=== PATIENT | female | born 1935 | race Caucasian/White ===

== ENCOUNTER 2020-04-01 08:06 | Outpatient (REF) | payer MEDICARE, SELFPAY ==
[2020-04-01 11:07] LABS: MANUAL DIFF FLAG NO
[2020-04-01 11:18] LABS: Basophils Absolute Auto 0.1 X10*3/uL (0.0-0.2); Basophils Percent Auto 0.8 % (0-2); Eosinophils Absolute Auto 1.3 X10*3/uL (0.0-0.4); Eosinophils Percent Auto 13.6 % (0-4); Hemoglobin 14.5 g/dl (12.0-16.0); Imm Gran Abs Auto 0.03 X10*3/uL (0.00-0.03); Imm Gran Pct Auto 0.3 % (0.0-0.4); Lymphocytes Absolute Auto 3.1 X10*3/uL (1.2-4.9); Lymphocytes Percent Auto 32.6 % (20-40); Mean Corpuscular HGB Conc 31.5 g/dl (31.0-35.0); Mean Corpuscular Hemoglobin 29.2 pg (27.0-33.0); Mean Corpuscular Volume 92.7 fL (80-98); Mean Platelet Volume 10.9 fL (9.4-12.3); Monocytes Absolute Auto 0.9 X10*3/uL (0.1-1.2); Monocytes Percent Auto 9.1 % (2-11); Neutrophils Absolute Auto 4.2 X10*3/uL (2.0-8.3); Neutrophils Percent Auto 43.6 % (45-73); Platelet Count 256 X10*3/uL (160-400); Red Blood Count 4.96 X10*6/uL (4.20-5.50); Red Cell Distribution Width 14.4 % (11.0-16.0); White Blood Count 9.6 X10*3/uL (4.8-10.8)
[2020-04-01 11:58] LABS: Alanine Aminotransferase 11 U/L (0-31); Alkaline Phosphatase 83 U/L (39-117); Anion Gap 15 (12-20); Aspartate Amino Transferase 29 U/L (5-31); Bilirubin Total 0.7 mg/dL (0.0-1.0); Blood Urea Nitrogen 14 mg/dL (9-16); Calcium 9.2 mg/dL (8.4-10.2); Carbon Dioxide 25 mmol/L (22-29); Chloride 107 mmol/L (96-108); Cholesterol 173 mg/dL; Estimated Glomerular Filt Rate > 60; Glucose Fasting 98 mg/dL (60-99); HDL Cholesterol 73 mg/dL; LDL Cholesterol Calculated 84 mg/dl; Potassium 4.3 mmol/l (3.3-5.1); Sodium 143 mmol/L (135-145); Total Protein 6.8 g/dL (6.5-8.0); Triglycerides 80 mg/dL
[2020-04-01 11:59] LABS: Thyroid Stimulating Hormone 0.48 mIU/mL (0.32-4.0)
== END 2020-04-01 08:07 | disposition home or self-care (01) ==
LOC: HO.HMGCLDS 08:06
PROVIDERS: PCP Internal Medicine; Visit Provider Internal Medicine
DX: E78.00 Pure hypercholesterolemia, unspecified (principal); I10 Essential (primary) hypertension; E03.9 Hypothyroidism, unspecified; J45.30 Mild persistent asthma, uncomplicated; L40.9 Psoriasis, unspecified
CPT/HCPCS: 36415; 80053; 80061; 84443; 85025

== ENCOUNTER 2021-03-25 09:25 | Outpatient (REF) | payer MEDICARE, SELFPAY ==
[2021-03-25 11:39] LABS: MANUAL DIFF FLAG NO
[2021-03-25 11:49] LABS: Basophils Absolute Auto 0.1 X10*3/uL (0.0-0.2); Basophils Percent Auto 0.9 % (0-2); Eosinophils Absolute Auto 0.7 X10*3/uL (0.0-0.4); Eosinophils Percent Auto 8.5 % (0-4); Hematocrit 46.3 % (37-47); Hemoglobin 14.9 g/dl (12.0-16.0); Imm Gran Abs Auto 0.03 X10*3/uL (0.00-0.03); Imm Gran Pct Auto 0.4 % (0.0-0.4); Lymphocytes Absolute Auto 2.3 X10*3/uL (1.2-4.9); Lymphocytes Percent Auto 28.5 % (20-40); Mean Corpuscular HGB Conc 32.2 g/dl (31.0-35.0); Mean Corpuscular Hemoglobin 28.4 pg (27.0-33.0); Mean Corpuscular Volume 88.4 fL (80-98); Mean Platelet Volume 10.7 fL (9.4-12.3); Monocytes Absolute Auto 0.6 X10*3/uL (0.1-1.2); Neutrophils Absolute Auto 4.3 X10*3/uL (2.0-8.3); Neutrophils Percent Auto 53.7 % (45-73); Platelet Count 257 X10*3/uL (160-400); Red Blood Count 5.24 X10*6/uL (4.20-5.50); Red Cell Distribution Width 14.7 % (11.0-16.0)
[2021-03-25 12:17] LABS: Alanine Aminotransferase 27 U/L (0-31); Alkaline Phosphatase 105 U/L (39-117); Anion Gap 14 (12-20); Aspartate Amino Transferase 53 U/L (5-31); Bilirubin Total 0.6 mg/dL (0.0-1.0); Blood Urea Nitrogen 14 mg/dL (9-16); Calcium 9.9 mg/dL (8.4-10.2); Carbon Dioxide 23 mmol/L (22-29); Chloride 109 mmol/L (96-108); Cholesterol 206 mg/dL; Estimated Glomerular Filt Rate > 60; Glucose Fasting 115 mg/dL (60-99); HDL Cholesterol 71 mg/dL; LDL Cholesterol Calculated 114 mg/dl; Potassium 4.2 mmol/L (3.3-5.1); Sodium 142 mmol/L (135-145); Triglycerides 109 mg/dL
[2021-03-25 12:18] LABS: Thyroid Stimulating Hormone 0.74 uIU/mL (0.32-4.0)
== END 2021-03-25 09:26 | disposition home or self-care (01) ==
LOC: HO.HMGCLDS 09:25
PROVIDERS: PCP Internal Medicine; Visit Provider Internal Medicine
DX: I10 Essential (primary) hypertension (principal); E78.00 Pure hypercholesterolemia, unspecified; E03.8 Other specified hypothyroidism; J45.30 Mild persistent asthma, uncomplicated
CPT/HCPCS: 36415; 80053; 80061; 84443; 85025

== ENCOUNTER 2021-09-22 09:06 | Outpatient (REF) | payer MEDICARE, SELFPAY ==
[2021-09-22 09:15] LABS: MANUAL DIFF FLAG NO
--- NOTE | 2021-09-22 09:57 | ECG_ITS ---
Test Reason : ESSEN. HTN Blood Pressure : / mmHG Vent. Rate : 072 BPM Atrial Rate : 072 BPM P-R Int : 164 ms QRS Dur : 126 ms QT Int : 422 ms P-R-T Axes : -12 071 015 degrees QTc Int : 462 ms Normal sinus rhythm Right bundle branch block Abnormal ECG When compared with ECG of 25-AUG-2016 10:26, Right bundle branch block is now Present Referred By: Lukas Gupta Electronically Signed By:SULY CRAVEN MD
[2021-09-22 10:11] LABS: Basophils Absolute Auto 0.1 X10*3/uL (0.0-0.2); Basophils Percent Auto 0.8 % (0-2); Eosinophils Absolute Auto 0.7 X10*3/uL (0.0-0.4); Eosinophils Percent Auto 7.5 % (0-4); Imm Gran Abs Auto 0.03 X10*3/uL (0.00-0.03); Imm Gran Pct Auto 0.3 % (0.0-0.4); Lymphocytes Absolute Auto 2.3 X10*3/uL (1.2-4.9); Lymphocytes Percent Auto 25.4 % (20-40); Mean Corpuscular HGB Conc 31.9 g/dl (31.0-35.0); Mean Corpuscular Hemoglobin 29.1 pg (27.0-33.0); Mean Corpuscular Volume 91.3 fL (80.0-98.0); Mean Platelet Volume 10.8 fL (9.4-12.3); Monocytes Absolute Auto 0.8 X10*3/uL (0.1-1.2); Monocytes Percent Auto 8.5 % (2-11); Neutrophils Absolute Auto 5.1 x10*3/uL (2.0-8.3); Neutrophils Percent Auto 57.5 % (45-73); Platelet Count 242 X10*3/uL (160-400); Red Blood Count 5.15 X10*6/uL (4.20-5.50); Red Cell Distribution Width 14.2 % (11.0-16.0); White Blood Count 8.9 X10*3/uL (4.8-10.8)
[2021-09-22 10:46] LABS: Alanine Aminotransferase 11 U/L (0-31); Alkaline Phosphatase 84 U/L (39-117); Anion Gap 16 (12-20); Aspartate Amino Transferase 32 U/L (5-31); Bilirubin Total 0.7 mg/dL (0.0-1.0); Blood Urea Nitrogen 16 mg/dL (9-16); Calcium 10.1 mg/dL (8.4-10.2); Carbon Dioxide 22 mmol/L (22-29); Chloride 107 mmol/L (96-108); Estimated Glomerular Filt Rate > 60; Glucose Random 117 mg/dL (60-115); Potassium 4.7 mmol/L (3.3-5.1); Sodium 140 mmol/L (135-145); Total Protein 7.2 g/dL (6.5-8.0)
[2021-09-22 11:00] LABS: Thyroid Stimulating Hormone 1.32 uIU/mL (0.32-4.0)
== END 2021-09-22 09:07 | disposition home or self-care (01) ==
LOC: HO.LAB 09:06
PROVIDERS: PCP Internal Medicine; Visit Provider Internal Medicine
DX: I10 Essential (primary) hypertension (principal); E03.9 Hypothyroidism, unspecified; E78.00 Pure hypercholesterolemia, unspecified
CPT/HCPCS: 36415; 80053; 84443; 85025; 93005

== ENCOUNTER 2022-04-23 10:56 | Outpatient (REF) | payer MEDICARE, SELFPAY ==
--- NOTE | ~2022-04-23 | MM_ITS ---
EXAMINATION: MM SCREENING DIGITAL BREAST TOMOSYNTHESIS, BILATERAL CLINICAL INFORMATION: Screening. Asymptomatic. COMPARISON: Mammography: February 20, 2020 and studies dating back to July 08, 2015 TECHNIQUE: Digital breast tomosynthesis is performed in both the craniocaudal and mediolateral oblique views along with computer-aided detection (CAD). Synthesized 2D images are generated from the tomosynthesis. FINDINGS: The breasts are almost entirely fatty (ACR BI-RADS breast composition Category a). There are no significant masses, abnormal calcifications, or other abnormalities. MM/MM tomosynthesis screening BI IMPRESSION: No significant changes ASSESSMENT: BI-RADS 1: Negative RECOMMENDATION: Routine annual mammography screening. This patient's information was entered into a reminder system with a target due date for their next mammogram.
== END 2022-04-23 10:57 | disposition home or self-care (01) ==
LOC: HO.MAMMO 10:56
PROVIDERS: PCP Internal Medicine; Visit Provider Internal Medicine
DX: Z12.31 Encounter for screening mammogram for malignant neoplasm of breast (principal)
CPT/HCPCS: 77063; 77067

== ENCOUNTER 2022-07-02 10:33 | Outpatient (REF) | payer MEDICARE, SELFPAY ==
--- NOTE | ~2022-07-02 | XR_ITS ---
EXAMINATION: XR SINUSES CLINICAL INFORMATION: Sinusitis COMPARISON: None TECHNIQUE: 4 FINDINGS: Visualized paranasal sinuses appear clear. No air-fluid levels. No displaced fracture appreciated. Nasal septum is intact without deviation. XR/XR sinus min 3V IMPRESSION: Visualized paranasal sinuses appear clear. If clinical concern for sinusitis persists, CT sinuses be more sensitive for evaluation.
== END 2022-07-02 10:34 | disposition home or self-care (01) ==
LOC: HO.XRAY 10:33
PROVIDERS: PCP Internal Medicine; Visit Provider Otolaryngology
DX: J32.9 Chronic sinusitis, unspecified (principal)
CPT/HCPCS: 70220

== ENCOUNTER 2022-09-15 11:53 | Outpatient (REF) | payer MEDICARE, SELFPAY ==
[2022-09-15 13:51] LABS: MANUAL DIFF FLAG NO
[2022-09-15 14:05] LABS: Basophils Absolute Auto 0.1 X10*3/uL (0.0-0.2); Basophils Percent Auto 0.8 % (0-2); Eosinophils Absolute Auto 0.9 X10*3/uL (0.0-0.4); Eosinophils Percent Auto 9.4 % (0-4); Hematocrit 46.6 % (37.0-47.0); Hemoglobin 15.1 g/dl (12.0-16.0); Imm Gran Abs Auto 0.04 X10*3/uL (0.00-0.03); Imm Gran Pct Auto 0.4 % (0.0-0.4); Lymphocytes Percent Auto 20.4 % (20-40); Mean Corpuscular HGB Conc 32.4 g/dl (31.0-35.0); Mean Corpuscular Hemoglobin 29.6 pg (27.0-33.0); Mean Corpuscular Volume 91.4 fL (80.0-98.0); Mean Platelet Volume 11.3 fL (9.4-12.3); Monocytes Absolute Auto 0.8 X10*3/uL (0.1-1.2); Monocytes Percent Auto 8.4 % (2-11); Neutrophils Percent Auto 60.6 % (45-73); Platelet Count 252 X10*3/uL (160-400); Red Cell Distribution Width 13.7 % (11.0-16.0)
[2022-09-15 14:58] LABS: Thyroid Stimulating Hormone 2.01 uIU/mL (0.32-4.0)
== END 2022-09-15 11:54 | disposition home or self-care (01) ==
LOC: HO.HMGCLDS 11:53
PROVIDERS: PCP Internal Medicine; Visit Provider Internal Medicine
DX: I10 Essential (primary) hypertension (principal); E78.00 Pure hypercholesterolemia, unspecified; E03.9 Hypothyroidism, unspecified; J45.30 Mild persistent asthma, uncomplicated; M16.12 Unilateral primary osteoarthritis, left hip
CPT/HCPCS: 36415; 84443; 85025

== ENCOUNTER 2022-09-16 09:14 | Outpatient (REF) | payer MEDICARE, SELFPAY ==
[2022-09-16 12:18] LABS: Alanine Aminotransferase 11 U/L (0-31); Alkaline Phosphatase 90 U/L (39-117); Anion Gap 15 (12-20); Aspartate Amino Transferase 30 U/L (5-31); Bilirubin Total 0.7 mg/dL (0.0-1.0); Blood Urea Nitrogen 12 mg/dL (9-16); Calcium 9.6 mg/dL (8.4-10.2); Carbon Dioxide 23 mmol/L (22-29); Chloride 107 mmol/L (96-108); Cholesterol 193 mg/dL; Estimated Glomerular Filt Rate > 60; Glucose Fasting 118 mg/dL (60-99); HDL Cholesterol 73 mg/dL; LDL Cholesterol Calculated 101 mg/dl; Potassium 4.2 mmol/L (3.3-5.1); Sodium 141 mmol/L (135-145); Total Protein 6.6 g/dL (6.5-8.0); Triglycerides 98 mg/dL
== END 2022-09-16 09:15 | disposition home or self-care (01) ==
LOC: HO.HMGCLDS 09:14
PROVIDERS: PCP Internal Medicine; Visit Provider Internal Medicine
DX: I10 Essential (primary) hypertension (principal); E78.00 Pure hypercholesterolemia, unspecified; E03.9 Hypothyroidism, unspecified; J45.30 Mild persistent asthma, uncomplicated; M16.12 Unilateral primary osteoarthritis, left hip
CPT/HCPCS: 36415; 80053; 80061

== ENCOUNTER 2024-01-28 08:37 | Outpatient (REF) | payer MEDICARE, SELFPAY ==
[2024-01-28 10:07] LABS: MANUAL DIFF FLAG NO
[2024-01-28 10:19] LABS: Basophils Absolute Auto 0.1 X10*3/uL (0.0-0.2); Eosinophils Absolute Auto 1.2 X10*3/uL (0.0-0.4); Eosinophils Percent Auto 12.8 % (0-4); Hematocrit 45.5 % (37.0-47.0); Hemoglobin 15.3 g/dl (12.0-16.0); Imm Gran Abs Auto 0.04 X10*3/uL (0.00-0.03); Imm Gran Pct Auto 0.4 % (0.0-0.4); Lymphocytes Absolute Auto 2.6 X10*3/uL (1.2-4.9); Lymphocytes Percent Auto 29.1 % (20-40); Mean Corpuscular HGB Conc 33.6 g/dl (31.0-35.0); Mean Corpuscular Hemoglobin 29.7 pg (27.0-33.0); Mean Corpuscular Volume 88.2 fL (80.0-98.0); Mean Platelet Volume 10.8 fL (9.4-12.3); Monocytes Percent Auto 10.7 % (2-11); Neutrophils Absolute Auto 4.1 x10*3/uL (2.0-8.3); Platelet Count 236 X10*3/uL (160-400); Red Blood Count 5.16 X10*6/uL (4.20-5.50)
[2024-01-28 10:51] LABS: Alanine Aminotransferase 10 U/L (0-31); Albumin Level 3.8 g/dL (3.5-5.0); Alkaline Phosphatase 80 U/L (39-117); Anion Gap 13 (12-20); Aspartate Amino Transferase 31 U/L (5-31); Bilirubin Total 0.5 mg/dL (0.0-1.0); Blood Urea Nitrogen 20 mg/dL (9-16); Calcium 9.8 mg/dL (8.4-10.2); Carbon Dioxide 26 mmol/L (22-29); Chloride 104 mmol/L (96-108); Cholesterol 173 mg/dL (<200); Estimated Glomerular Filt Rate > 60; Glucose Fasting 132 mg/dL (60-99); HDL Cholesterol 65 mg/dL (>40); LDL Cholesterol Calculated 90 mg/dL (<100); Potassium 3.3 mmol/L (3.3-5.1); Sodium 140 mmol/L (135-145); Total Protein 7.3 g/dL (6.5-8.0); Triglycerides 91 mg/dL (<150)
[2024-01-28 10:57] LABS: Thyroid Stimulating Hormone 0.36 uIU/mL (0.32-4.0)
== END 2024-01-28 08:38 | disposition home or self-care (01) ==
LOC: HO.HMGCLDS 08:37
PROVIDERS: PCP Internal Medicine; Visit Provider Internal Medicine
DX: I10 Essential (primary) hypertension (principal); E78.00 Pure hypercholesterolemia, unspecified; E03.9 Hypothyroidism, unspecified; J45.30 Mild persistent asthma, uncomplicated; M16.12 Unilateral primary osteoarthritis, left hip
CPT/HCPCS: 36415; 80053; 80061; 84443; 85025

== ENCOUNTER 2024-08-23 10:52 | Outpatient (AMB) | payer MEDICARE, SELFPAY ==
--- NOTE | 2024-08-23 10:55 | A.OFFPC_ITS ---
Vital Signs 08/23/24 11:02 Height 5 ft 2.25 in Weight 149 lb BMI 27.0 BP 150/82 H Blood Pressure Location Rt brachial Pulse 77 Pulse Source Pulse Oximeter Temp 97.0 F Pulse Oximetry (%) 95 Intake Visit Reasons: follow up Intake Note: problem with right hip and knee last week was bad where she couldn't get out of bed. Allergies No Known Allergies [No Known Allergies*] Allergy (Verified 08/23/24 12:15) Medication List - Last Reconciled 08/23/24 by Edwina Zuleta PA-C albuterol sulfate 90 mcg/actuation 1 inh inhalation Q4-6H PRN aspirin 81 mg PO DAILY atorvastatin 20 mg PO DAILY calcium carbonate-vit D3-min 600 mg-10 mcg (400 unit) 1 tab PO BID fluticasone propion-salmeterol 250-50 mcg/dose 1 inh inhalation BID hydrochlorothiazide 25 mg PO DAILY ibuprofen 800 mg PO Q6H PRN levothyroxine 75 mcg PO DAILY metoprolol tartrate 25 mg PO DAILY [facility] Medical History (Updated 08/23/24 @ 12:19 by Edwina Zuleta PA-C) History of mammogram (~04/23/22) Primary osteoarthritis of right knee [place] Cataract Glaucoma Psoriasis 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 BMI result Body Mass Index 27.0 BMI Assessment/Plan discussion: High BMI High, discussed plan: lifestyle, weight reduction, dietary, physical activity and alcohol moderation Coding Level of Care Code Est Pt Level 4 (23848) Complex EM visit Add On G2211 Diagnoses Hypertension I10 Mild hypercholesterolemia E78.00 Hypothyroidism E03.9 Osteoarthritis M19.90 Squamous cell carcinoma of face C44.320 Obstructive airway disease J44.9 Osteoporosis M81.0 Psoriasis L40.9 Primary osteoarthritis of right knee M17.11 Cough R05.9 Assessment & Plan Assessment & Plan (1) Hypertension: Code(s): I10 - Essential (primary) hypertension Category: Medical Plan: The patient should monitor her blood pressure at home for two weeks to determine the need for adjustments in therapy. She is currently on aspirin 81 mg, atorvastatin 20 mg daily, hydrochlorothiazide 25 mg, metoprolol 25 mg daily. Condition is chronic and stable will continue to monitor. (2) Mild hypercholesterolemia: Code(s): E78.00 - Pure hypercholesterolemia, unspecified Category: Medical Plan: TC Goal <200. LDL Goal <100. HDL Goal >40. Triglyceride goal <150. Patient had labs on 01/28/2024 triglycerides were 91, total cholesterol 173, LDL 90 and HDL 65. At goal. Patient to continue atorvastatin 20 mg daily. Condition is chronic and stable continue to monitor. (3) Hypothyroidism: Code(s): E03.9 - Hypothyroidism, unspecified Category: Medical Plan: Patient with normal TSH level. Patient to continue levothyroxine 75 mcg daily Wednesday through Wednesday and on Sundays 2 tablets of the 75 mcg. Condition is chronic and stable continue to monitor. (4) Osteoarthritis: Code(s): M19.90 - Unspecified osteoarthritis, unspecified site Category: Medical Plan: Patient reports her symptoms have improved. Condition is chronic and stable patient can continue taking ibuprofen 800 mg every 6 hours as needed (5) Squamous cell carcinoma of face: Code(s): C44.320 - Squamous cell carcinoma of skin of unspecified parts of face Category: Medical Plan: Patient to continue being followed by Dermatology. Condition is chronic and stable continue to monitor. (6) Obstructive airway disease: Code(s): J44.9 - Chronic obstructive pulmonary disease, unspecified Category: Medical Plan: Patient to continue to inhalers. If she develops any worsening shortness of breath, chest pain or any other symptoms she can call us. Condition is chronic and stable continue to monitor. (7) Osteoporosis: Code(s): M81.0 - Age-related osteoporosis without current pathological fracture Category: Medical Plan: Patient reports her symptoms have improved. Condition is chronic and stable patient can continue taking ibuprofen 800 mg every 6 hours as needed (8) Psoriasis: Code(s): L40.9 - Psoriasis, unspecified Category: Medical Plan: Patient being followed by Dermatology. Condition is chronic and stable continue to monitor. (9) Primary osteoarthritis of right knee: Code(s): M17.11 - Unilateral primary osteoarthritis, right knee Category: Medical Plan: Patient reports her symptoms have improved. Condition is chronic and stable patient can continue taking ibuprofen 800 mg every 6 hours as needed (10) Cough: Code(s): R05.9 - Cough, unspecified Category: Medical Plan: Will assess basic labs, chest x-ray and send the patient with a Z-Clarence for possible bronchitis. Condition is stable continue to monitor. Plan Plan Patient was informed and verbally consented to the use of an ambient scribe for clinic note documentation during this visit. 1. Chronic Obstructive Pulmonary Disease Copd Continue current inhaler regimen. Observe for any exacerbation signs and maintai n regular pulmonary assessments during follow-up visits. 2. Osteoarthritis Manage pain with NSAIDs. Monitor symptoms, particularly when there's physical activity. Use mobility aids as necessary for improved functional capacity. 3. Essential Hypertension The patient should monitor her blood pressure at home for two weeks to determine the need for adjustments in therapy. Potential colorations with transient coughing episodes and blood pressure changes should be monitored. Discussion Notes I discussed with the patient the management plan for her elevated blood pressure, emphasizing the importance of home monitoring to determine if the elevated office readings are consistent at home. We reviewed the use of a home blood pressure monitor and the importance of recording her readings. For her musculoskeletal pain, we agreed on continuing the current NSAID regimen and use of a walker for mobility support, recognizing that her acute episode has somewhat stabilized. Additionally, I explained the testing planned, including a potential CDC, CMP, and chest x-ray if symptoms worsen, noting the importance of fasting prior to testing. The importance of maintaining regular follow-up was stressed to monitor her COPD and squamous cell carcinoma history adequately. Orders: Orders Hemoglobin A1c Today Z00.00 - Encounter for general adult medical examination without abnormal findings Magnesium Today Z00.00 - Encounter for general adult medical examination without abnormal findings Vitamin B12 and Folate Today Z00.00 - Encounter for general adult medical examination without abnormal findings Vitamin B1 Today Z00.00 - Encounter for general adult medical examination without abnormal findings XR chest 2V Today R05.9 - Cough, unspecified C Reactive Protein Today Z00.00 - Encounter for general adult medical examination without abnormal findings Complete Blood Count Auto Diff Today Z00.00 - Encounter for general adult medical examination without abnormal findings Comprehensive Sublette. Panel Fast Today Z00.00 - Encounter for general adult medical examination without abnormal findings Creatine Kinase Total Today Z00.00 - Encounter for general adult medical examination without abnormal findings Lipid Panel Today Z00.00 - Encounter for general adult medical examination without abnormal findings Liver Panel Today Z00.00 - Encounter for general adult medical examination without abnormal findings TSH reflex Free T4 Today Z00.00 - Encounter for general adult medical examination without abnormal findings Vitamin D 25-OH Total Today Z00.00 - Encounter for general adult medical examination without abnormal findings Zinc Today Z00.00 - Encounter for general adult medical examination without abnormal findings Erythrocyte Sedimentation Rate Today Z00.00 - Encounter for general adult medical examination without abnormal findings Parathyroid Hormone Intact Today Z00.00 - Encounter for general adult medical examination without abnormal findings Phosphorus Today Z00.00 - Encounter for general adult medical examination without abnormal findings B Type Natriuretic Peptide Today R60.0 - Localized edema Medications: New azithromycin For 250 mg dose pack: take 500 mg today (day 1), then 250 mg for 4 days (days 2-5) PO 6 tabs 0RF Patient Instructions: Patient Instructions - Continue taking prescribed medications and [id number] Advil as needed for pain. - Monitor and record your blood pressure at home once daily or every other day. - Contact the office if you experience consistently high readings or have questions regarding the use of the blood pressure monitor. - Use a walker or other mobility aids as needed. - Schedule a follow-up in two weeks for blood pressure re-evaluation and ensure fasting prior to any scheduled laboratory tests. - Seek immediate medical care if you experience severe symptoms such as difficulty breathing, chest pain, or a fall. Scribe Plan - Not visible on output: History of Present Illness The patient is an 88-year-old female presenting with a follow-up for her chronic medical conditions. She has a past medical history of hypertension. She is currently on aspirin 81 mg daily, hydrochlorothiazide 25 mg daily and metoprolol 25 mg daily. Although during today's visit, her blood pressure was recorded as 150/82 mmHg, higher than her usual home reading of 117 mmHg. She reports no consistent elevated blood pressure at home and has been advised to monitor her blood pressure for a subsequent evaluation. The patient describes an acute episode of intense pain in her old hip and newly replaced knee one week ago, leading to significant mobility challenges. Pain onset was abrupt during the night, and she required assistance to get out of bed for a few days. Her condition has since improved with pain management using Advil. She utilizes a walker for support indoors and reports no recent falls. Patient reports over the weekend she also had a cough and some chest congestion and she spitting up small amounts of sputum production although that has im proved significantly. She denies any other symptoms complaints or concerns at this time. Social History - Lives alone but family resides nearby, providing support as needed. - Daughter lives down the street, and other relatives live close, providing potential emergency support. - Engages in her own daily activities such as cooking and cleaning. - Grandson and great-grandsons live on the upper floor of her residence. - Reports mobility with aid of a walker. - Pets: A cat with frequent interactions, including some mischief leading to minor physical harm. Review of Systems - Musculoskeletal: Reports acute pain in the hip and knee. - Respiratory: Reports recent coughing and sneezing, ongoing with some expectoration. - Cardiovascular: Denies recent leg swelling worsening with laying down. - ENT: Reports a need for replacing a lost hearing aid. - General: Denies recent falls but notes mobility challenges due to hip and knee pain. Physical Exam Appearance: Alert. Oriented X3. No acute distress. Head: Normal external exam. Normocephalic. Atraumatic. Eyes: Pupils are equal, round, and reactive to light. Extraocular movements intact. Conjunctiva and sclera normal. Eyelids normal. Ears: External auditory canal normal. Tympanic membranes normal. Throat: Pharynx normal. Uvula midline. Moist mucous membranes. Neck: Normal inspection. Neck supple. Full range of motion. No adenopathy. T hyroid Normal. No meningeal signs. No neck mass noted. Cardiovascular: Normal heart rate and rhythm. Heart sound normal. No murmurs noted. Pulses normal throughout. Respiratory: No respiratory distress. Painless inspiration. Breath sounds normal. No wheezes/rales/rhonchi noted. Chest nontender. No accessory muscle usage noted or decreased air movement noted. Abdomen: Soft and nontender. Bowel sounds normal in all 4 quadrants. No distention noted. No organomegaly noted. No visible injury noted. Back: No costovertebral angle tenderness. Full range of motion noted. Skin: Skin warm and dry. Normal skin color. Normal skin turgor. No rashes/lesions/lacerations noted. Extremities: No lower extremity edema. Extremities exhibit normal range of motion. Extremities nontender. Neuro: Oriented X 3. No motor deficit. No sensory deficit. Reflexes normal.
[2024-08-23 11:02] VITALS: BP 150/82; PULSE 77; TEMP 36.1; O2SAT 95; BMI 27.0
--- OUTSIDE RECORDS SUMMARY | 2024-08-23 13:03 | XMS_ITS ---
Author Organization [facility] Address [address] [place] [id number] Care Team Providers Care Label Sewer Name Role Phone Alonso LEE, Lukas Primary Care Provider Unavail Gisell Parker [phone] Encounters Encounter Location Date Provider Diagnosis [address] [phone] 07/27/2024 Gisell Sanderson Plan Of Treatment Next Appt Details Provider Name:Gisell Sanderson , 09/25/2024 08:30:00 AM, [address] [place] [address], [phone], Progress Notes * Vidhi MELENDREZ MDOB:1935 (88 yo F)Acc No.[id number]:07/27/2024 Progress Note Patient:?PARVIN Vidhi Rider Provider:?Gisell Sanderson DPM :1935???Age:88 Y???Sex:Female D ate:07/27/2024 Address:[address] [place] [id number] Pcp:Lukas Gupta MD Subjective: * Chief Complaints: * ??? * Medical History:? Objective: * Vitals:? Assessment: Plan: * Treatment: * Images: * The named appointment provid er may or may not be the originator of this progress note, and it is not deemed complete until electronically signed by the appointment provider. Sign off status: Pending * Provider:Arcadio Sanderson DPM Date:?2024 Generated for Gutierrez sweet/Mary/Alexanderitting on:?08/23/2024 01:03 PM EDT
--- OUTSIDE RECORDS SUMMARY | 2024-08-23 13:03 | XMS_ITS ---
[facility] Organization [facility] Address [address] [place] [address] Care Team Providers Care Supervisor Testing Name Role Phone Lukas Gupta MD Primary Care Provider Unavail able Gisell Sanderson Unavailable [phone] Allergies No Known Allergies REASON FOR VISIT Painful nail(s) aggrevated by shoes and causing difficulty standing/walking., Foot pain, Ingrown Nail Medications Medication SIG (Take, Route, Frequency, Duration) Notes Start Date End Date Status Tylenol Arthritis Pain Not-Taking Acetaminophen Extra Strength 500 MG 2 tablets as needed Orally every 6 hrs for 5 days 01/05/2018 Not-Taking Gabapentin 300 MG 1 capsule Orally AT BEDTIME for 14 days 10/09/2021 Not-Taking Cephalexin 500 MG 1 capsule Orally twi ce a day for 10 days 10/27/2021 Not-Taking Otezla 30 MG 1 tablet Orally Twic e a day Not-Taking Calcium Active Acetaminophen Extra Strength 500 MG 2 tablet as needed Orally every 6 hrs for 14 days 10/09/2021 Active Calcipotriene 0.005 % Externally Active Cephalexin 500 MG 1 capsule Orally twi ce a day for 10 days 08/30/2023 Not-Taking Ibuprofen 800 MG 1 tablet with food o r milk as needed Orally every 6 hrs for 10 days PRN 10/09/2021 Active Clobetasol & Clobetasol Emul Active Levothyroxine Sodium 75 MCG 1 capsule Orally Once a day Active Simvastatin 20 MG 1 tablet in the evening Orally Once a day Active ProAir HFA Active Metoprolol Succinate 50 MG Orally twice daily Active Serevent Diskus 50 MCG/DOSE 1 puff Inhalation Twice a day Not-Taking Desoximetasone Not-T aking Vanicream Not-Taking Quinapril HCl Not-Ta conor Flovent Diskus Not-T aking Gabapentin 300 MG 1 capsule Orally Onc e a day for 10 days 01/05/2018 Not-Taking Keflex 500 MG 1 capsule Orally guillermo ry 12 hrs for 10 days 01/14/2018 Not-Taking Ibuprofen 800 MG 1 tablet with food o r milk as needed Orally Three times a day for 10 days 01/05/2018 Not-Taking Pneumatic Compression Boot 30mm Hg as directed over swollen feet and legs as directed for . 01/24/2018 Not-Taking Latanoprost 0.005 % Ophthalmic for 17 Not-Taking Social History Tobacco Use: Social History Observation Description Date Details (start date - stop date) Never Smoker NA - NA Tobacco Use/Smoking Question Answer Notes Are you a: nonsmoker Additional Findings: Tobacco Non-User Current no n-smoker Tobacco use other than smoking: Question Answer Notes Are you an other tobacco user? No Vital Signs Height 5 ft 2 in in 04/20/2024 Weight 146 lbs 04/20/2024 BMI 26.7 kg/m2 04/20/2024 Procedures Procedure Date Ordered Date Performed Result Body Sit e 22194-ZWRDMNX NAIL, 6 OR MORE 04/20/2024 N/A 81979-Uhlwgwoh Plate 04/20/2024 N/A Encounters Encounter Location Date Provider Diagnosis [facility] [address] [address] 04/20/2024 Gisell Black Pain in right foot M79.671 ; Metatarsalgia, right foot M77.41 ; Tinea unguium B35.1 ; Pain in right toe(s) M79.674 ; Pain in left toe(s) M79.675 ; Pain in right ankle and joints of right foot M25.571 ; Bursitis of intermetatarsal bursa of right foot M77.51 ; 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 and Ingrown nail L60.0 Assessments Encounter Date Diagnosis (ICD Code) Assessment Notes Treatment Notes Treatment Clinical Notes Section Notes 04/20/2024 Pain in right foot (ICD-10 - M79.671) 04/20/2024 Metatarsalgia, right foot (ICD-10 - M77.41) 04/20/2024 Tinea unguium (ICD-10 - B35.1) 04/20/2024 Pain in right toe(s) (ICD-10 - M79.674) 04/20/2024 Pain in left toe(s) (ICD-10 - M79.675) 04/20/2024 Pain in right ankle and joints of right foot (ICD-10 - M25.571) 04/20/2024 Bursitis of intermetatarsal bursa of right foot (ICD-10 - M77.51) 04/20/2024 Fat pad atrophy of foot (ICD-10 - L90.9) 04/20/2024 Ingrown nail (ICD-10 - L60.0) Plan Of Treatment Pending Test Test Name Order Date [id number] NAIL, 6 OR MORE 04/20/2024 19812-Uttjbxkf Plate 04/20/2024 Next Appt Details Follow Up: prn, Reason: Provider Name:Gisell Sanderson , 09/25/2024 08:30:00 AM, [address] [place] [address], [phone], Procedure Notes * Category Sub-Category Detail Notes Nail Avulsion Procedure A fine sterile e levator was placed between the eponychium, nail fold, and nail plate to separate the structures. A sterile nail splitter, and/or sterile 316 blade, was then used to longitudinally section the nail along its entire length through the eponychium to the area under the nail fold. The offending portion of nail was from the nail bed with a rolling action and then removed with a hemostat. No underlying bone was identified. There was minimal bleeding as hemostasis was achieved through the temporary use of either a digital tourniquet or the aforementioned local with epinephrine. A bacitracin sterile dressing was applied. Local wound aftercare instructions were discussed and dispensed. The patient was informed of both conservative and future surgical procedures to prevent recurrence. Tylenol or Motrin was recommended for pain or discomfort (98487) Anesthesia , was accomplished T OPICALLY with Lidocaine Hydrochloride Jelly 2 percent Location , Lateral nail borde r, T5 Debride Nail 6-10 Nail debridement Performance o f this nail treatment by a nonprofessional would put this patients foot and overall health at risk. Therefore, debridement to affected nail(s), as described in exam, was performed extensively to reduce/remove overall nail length, girth, thickness, subungual debris, and necrotic tissue, by manual and/or electrical means through the use of a nail nipper and/or dremel-type external grinder, to a more viable healthy nail plate or bed tissue 6-10. Silver nitrate used for any petechial bleeding as necessary. Definitive antifungal treatment options have been reviewed and discussed with the patient. The patient chooses, no pharmaceutical tx - [address] Progress Notes * Vidhi MELENDREZ MDOB:1935 (88 yo F)Acc No.[id number]:04/20/2024 Progress Note Patient:?Vidhi MELENDREZ M Provider:?Gisell Sanderson DPM :1935???Age:88 Y???Sex:Female D ate:04/20/2024 Address:[address] [place], [place] [id number] Pcp:Lukas Gupta MD Subjective: * Chief Complaints: * ??? Painful nail(s) aggrevat ed by shoes and causing difficulty standing/walking.Foot painIngrown Nail * HPI: ???Painful Nails:?Pt States Last PCP Visit:?Date:?01/27/2024 ???Foot Pain:?Location:?Bottom, Forefoot, RIGHT.?Duration:?several months.?Course:?, improved, at 85%.?Treatments:?rest/alter normal daily activity, change in shoes, innersoles.? * ROS:?General/Constitutional:?Nausea?denies.?Vomiting?denies.?Hunger Thirst?denies.?Loss appetite?denies.?Chills?denies.?Fatigue?denies.?Fever?denies.?Night Sweats?denies.?Unexplained weight loss?denies.?Unexplained weight gain?denies.?HEENTM:?Dentures?denies.?Dizziness?denies.?Glasses/contacts?admits.?Retinopathy?de nies.?Blurred/double vision?denies.?TMJ?denies.?Discharge/drainage?denies.?Implants?denies.?Sore throat?denies.?Dental implants?denies.?Hard of hearing ?denies.?Difficulty chewing/swallowing/speaking?denies.?Nose bleeds?denies.?Sore mouth?denies.?Respiratory:?On Oxygen?denies.?Pneumonia/pleurisy?denies.?Bronchitis?denies.?Emphysema?denies.?C oughing?denies.?Cough blood?denies.?Shortness of breath?denies.?Wheezing?denies.?Cardiovascular:?Pacemaker?denies.?MVP?denies.?WPW?denies.?CHF?denies.?Heart attack?denies.?Septal defect?denies.?Rapid beat?denies.?Chest pain ?denies.?Atrial Fib.?denies.?Murmur/Palpitations?denies.?Gastrointestinal:?Hemorrhoids?denies.?Stomach/Abdominal pain?denies.?Dark blood stool?denies.?Irritable bowel ?denies.?Constipation?denies.?Diarrhea?denies.?Hematology:?Swelling?denies.?Clots?denies.?Varicose Veins?denies.?Bruising?denies.?Bleeding problem?denies.?Genitourinary:?Blood urine?denies.?Frequent/Painfu/urination/bladder control?denies.?Kidney stones?denies.?Infection (UTI)?denies.?Nephropathy?denies.?sex trans dis (STD)?denies.?Prostate?denies.?Musculoskeletal:?Hammertoes?, admits.?Bunions?, admits.?Back Pain?denies.?Muscle Cramps/ Resting?admits.?Muscle cramps / walking?denies.?Generalized aches and pains?admits.?Weakness?denies.?Integ.:?Donahue?denies.?Scars?denies.?Corns/calluses?denies.?Ingrown nails?denies.?Painful nails?denies.?Open Sores?denies.?Rashes?denies.?Neurologic:?Difficulty sleeping?denies.?Brain disorder?denies.?Numbness?denies.?Balance trouble?denies.?Confusion?denies.?Fainting/blackouts?denies.?Tingling?denies.?Tr emors?denies.? * Medical History:? * Surgical History:?appendecto my hysterectomy bladder suspension right hip replacement 04/23/2014cataract surgery OU 04/2015HT repair 2,3 L DIPJ+PIPJ w Kwire, Tenotomy & Capsulotomy 2,3 L 01/12/2018Bride right Hammertoe repair 1st and second right B/P 10/15/2021 * Hospitalization/Major Diagno stic Procedure:?Denies Past Hospitalization * Family History:?Mother: dece ased, kidney disease.?Father: , diagnosed with Other malignant neoplasm of unspecified site, Unspecified heart disease.?Siblings: diagnosed with Diabetic - NIDDM.? * Social History:?Tobacco Use:?Tobacco Use/Smoking?Are you a:?nonsmoker ?Additional Findings: Tobacco Non-User?Current non-smoker ?Tobacco use other than smoking?Are you an other tobacco user??No * Medications:?TakingProAir HF A Metoprolol Succinate 50 MG Tablet Extended Release Orally twice daily Levothyroxine Sodium 75 MCG Tablet 1 capsule Orally Once a day Simvastatin 20 MG Tablet 1 tablet in the evening Orally Once a day Clobetasol & Clobetasol Emul Calcipotriene 0.005 % Cream Externally Calcium Acetaminophen Extra Strength 500 MG Tablet 2 tablet as needed Orally every 6 hrs Ibuprofen 800 MG Tablet 1 tablet with food or milk as needed Orally every 6 hrs , Notes to Pharmacist: PRNTaking ProAir HFA Taking Metoprolol Succinate 50 MG Tablet Extended Release Orally twice daily Taking Levothyroxine Sodium 75 MCG Tablet 1 capsule Orally Once a day Taking Simvastatin 20 MG Tablet 1 tablet in the evening Orally Once a day Taking Clobetasol & Clobetasol Emul Taking Calcipotriene 0.005 % Cream Externally Taking Calcium Taking Acetaminophen Extra Strength 500 MG Tablet 2 tablet as needed Orally every 6 hrs Taking Ibuprofen 800 MG Tablet 1 tablet with food or milk as needed Orally every 6 hrs , Notes to Pharmacist: PRNNot-Taking/PRNCephalexin 500 MG Capsule 1 capsule Orally twice a day Otezla 30 MG Tablet 1 tablet Orally Twice a day Gabapentin 300 MG Capsule 1 capsule Orally AT BEDTIME Cephalexin 500 MG Capsule 1 capsule Orally twice a day Tylenol Arthritis Pain Acetaminophen Extra Strength 500 MG Tablet 2 tablets as needed Orally every 6 hrs Ibuprofen 800 MG Tablet 1 tablet with food or milk as needed Orally Three times a day Pneumatic Compression Boot 30mm Hg wear as directed over swollen feet and legs as directed Gabapentin 300 MG Capsule 1 capsule Orally Once a day Keflex 500 MG Capsule 1 capsule Orally every 12 hrs Latanoprost 0.005 % Solution Ophthalmic Quinapril HCl Flovent Diskus Desoximetasone Vanicream Serevent Diskus 50 MCG/DOSE Aerosol Powder Breath Activated 1 puff Inhalation Twice a day Medication List reviewed and reconciled with the patientNot-Taking/PRN Cephalexin 500 MG Capsule 1 capsule Orally twice a day Not-Taking/PRN Otezla 30 MG Tablet 1 tablet Orally Twice a day Not-Taking/PRN Gabapentin 300 MG Capsule 1 capsule Orally AT BEDTIME Not-Taking/PRN Cephalexin 500 MG Capsule 1 capsule Orally twice a day Not-Taking/PRN Tylenol Arthritis Pain Not-Taking/PRN Acetaminophen Extra Strength 500 MG Tablet 2 tablets as needed Orally every 6 hrs Not-Taking/PRN Ibuprofen 800 MG Tablet 1 tablet with food or milk as needed Orally Three times a day Not-Taking/PRN Pneumatic Compression Boot 30mm Hg wear as directed over swollen feet and legs as directed Not-Taking/PRN Gabapentin 300 MG Capsule 1 capsule Orally Once a day Not-Taking/PRN Keflex 500 MG Capsule 1 capsule Orally every 12 hrs Not-Taking/PRN Latanoprost 0.005 % Solution Ophthalmic Not-Taking/PRN Quinapril HCl Not-Taking/PRN Flovent Diskus Not-Taking/PRN Desoximetasone Not-Taking/PRN Vanicream Not-Taking/PRN Serevent Diskus 50 MCG/DOSE Aerosol Powder Breath Activated 1 puff Inhalation Twice a day Medication List reviewed and reconciled with the patient * Allergies:?N.K.D.A.yes[Aller gies Verified] Objective: * Vitals:?Ht: 5 ft 2 in, Wt: 1 46, BMI: 26.7, Shoe size: 6.5-7, Wt-k.22 kg. * Examination: ???General Examination: ?GENERAL APPEARANCE:?Reveals a pleasant, alert, well nourished, well- developed, well hydrated individual, who demonstrates proper attention to hygiene/body habitus, and is in no acute distress, Pt serves as own historian for office visit today.?ORIENTED:?person, place, and time.?Nails: ?NAILS are:?elongated,overgrown,dystrophic,greater than 3mm thick,discolored and friable with crumbly malodorous subungual debris, with pain on palpation?1-5 Left foot?T6 T7 T9.?Orthopedic: ?MUSCLE STRENGTH:?5/5 all groups in a symmetrical fashion, B/L.?GAIT ABNORMALITY:?antalgic.?TAILOR'S BUNION:?Prominent 5th MTH/MPJ , B/L.?DIGITAL DEFORMITIES:?Digital contracture, PIPJ, 2-5 B/L, incompl-reducible with WB, or to push-up test, no over, nor underlapping.?MPJ PATHOLOGY:? Pain, swelling, and inflammation to plantar MPJ(s), RIGHT, No MPJ pain with ROM, [ - ] Ecchymosis, 4th, 5th, RIGHT, Atrophied anterior fat pad 85 % LESS.?Neurological: ?SENSORY:?Neurological exam reveals intact sensorium, pain sensation normal, vibration sensation intact, pinprick sensation is normal in the lower extremities, Pt denies, anesthesia, burning, paresthesia, tingling, B/L.?TINEL'S COMPRESSION:? Negative tarsal tunnel, seferino pedis, and medial calcaneal nerves, Right.?Ingrown Nail: ?INSPECTION:?Reveals nail incurvation, pain on palpation, groove hypertrophy, groove ischemia, Lateral nail border, T5.?Vascular: ?DP PULSES(B):?2/4, B/L.?PT PULSES(B):?2/4, B/L.?CAPILLARY FILL TIME:?immediate, all digits, B/L.?TROPHIC CONDITION-TEXTURE/ELASTICITY/TURGOR/HAIR GROWTH(B):?normal, B/L.? 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 Plan: * Treatment: 2.?Ingrown nail?Procedure: [id number] Plate * Procedures:?Debride Nail 6-10:?Nail debridement?Performance of this nail treatment by a nonprofessional would put this patients foot and overall health at risk. Therefore, debridement to affected nail(s), as described in exam, was performed extensively to reduce/remove overall nail length, girth, thickness, subungual debris, and necrotic tissue, by manual and/or electrical means through the use of a nail nipper and/or dremel-type external grinder, to a more viable healthy nail plate or bed tissue 6-10. Silver nitrate used for any petechial bleeding as necessary. Definitive antifungal treatment options have been reviewed and discussed with the patient. The patient chooses, no pharmaceutical tx - 68086.?Nail Avulsion:?Location?, Lateral nail border, T5.?Anesthesia?, was accomplished TOPICALLY with Lidocaine Hydrochloride Jelly 2 percent.?Procedure?A fine sterile elevator was placed between the eponychium, nail fold, and nail plate to separate the structures. A sterile nail splitter, and/or sterile 316 blade, was then used to longitudinally section the nail along its entire length through the eponychium to the area under the nail fold. The offending portion of nail was from the nail bed with a rolling action and then removed with a hemostat. No underlying bone was identified. There was minimal bleeding as hemostasis was achieved through the temporary use of either a digital tourniquet or the aforementioned local with epinephrine. A bacitracin sterile dressing was applied. Local wound aftercare instructions were discussed and dispensed. The patient was informed of both conservative and future surgical procedures to prevent recurrence. Tylenol or Motrin was recommended for pain or discomfort (91851).? * Procedure Codes:?29488 DEBRI DE NAIL, 6 OR MORE, Modifiers: XS 12509 Avulsion Plate, Modifiers: TA * Preventive Medicine:? ??Counseling:?Discussion:?-12: Office or other outpatient visit for the evaluation and management of an established patient, which required a medically appropriate history and/or examination and STRAIGHTFORWARD level of MEDICAL DECISION MAKING, 1 SELF-LIMITED OR MINOR PROBLEM, MINIMAL- NO AMOUNT/COMPLEXITY OF DATA TO BE REVIEWED/ANALYZED, AND MINIMAL RISK OF COMPLICATION/MORBIDITY. The visit on the day of the encounter encompassed interpreting the data and educating the patient as to the nature of their condition, treatment options available according to their individual PMH, meds, allergies, and overall health/living conditions, as well as any potential risks or complications that may occur from a failure to adhere to, and participate in, the recommended course of therapy. The discussion included a complete verbal, and/or written explanation of the examination results, any x-rays taken, the proposed diagnosis, and outline of the treatment plan. A schedule for future care needs was also explained. The patient verbalized an understanding of the instructions at this time and agreed to be an active participant in their treatment. If the patient should think of any questions or concerns after the visit, I have encouraged the patient to call the office.?Metatarsalgea:?Discussed other tx options for the patients condition, given recent successful results to treatment, the patient wishes to continue with the present plan for their condition.? ??Screening/Special Tests:?Fall Risk?Assessment:?Performed ?Screening:?No falls in the past year ?FALLS: Screening for Future Fall Risk?Have you had two or more falls in the past year??No ?Have you had any falls with injury in the past year??No * Follow Up:?prn * Images: * Sign off status: Completed true * Provider:?Gisell Sanderson DPM Date:?2023 Generated for Gutierrez sweet/Mary/Alexanderitting on:?08/23/2024 01:03 PM EDT History and Physical Notes * HPI (History of Present Illness) Category Sub-Category Detail Notes Category Not es Painful Nails Pt States Last PCP Visit: Date:: 01/27/2024 Foot Pain Location: Bottom, Forefoot, RIGHT Duration: several months Course: , improved, at 85% Treatments: rest/alter normal da rhea activity, change in shoes, innersoles Examination Category Sub-Category Detail Notes Category Not es Ingrown Nail INSPECTION: Reveals nail inc urvation, pain on palpation, groove hypertrophy, groove ischemia, Lateral nail border, T5 Neurological SENSORY: Neurological exa m reveals intact sensorium, pain sensation normal, vibration sensation intact, pinprick sensation is normal in the lower extremities, Pt denies, anesthesia, burning, paresthesia, tingling, B/L TINEL'S COMPRESSION: Negative tarsal omega wilda, seferino pedis, and medial calcaneal nerves, Right Orthopedic GAIT ABNORMALITY: antalgic DIGITAL DEFORMITIES: Digital contracture , PIPJ, 2-5 B/L, incompl-reducible with WB, or to push-up test, no over, nor underlapping MPJ PATHOLOGY: Pain, swelling, and inflammation to plantar MPJ(s), RIGHT, No MPJ pain with ROM, [ - ] Ecchymosis, 4th, 5th, RIGHT, Atrophied anterior fat pad 85 % LESS TAILOR'S BUNION: Prominent 5th MTH/MP J , B/L MUSCLE STRENGTH: 5/5 all groups in a symmetrical fashion, B/L General Examination GENERAL APPEARANCE: Reveals a pleasant, alert, well nourished, well-developed, well hydrated individual, who demonstrates proper attention to hygiene/body habitus, and is in no acute distress, Pt serves as own historian for office visit today ORIENTED: person, place, and t promise Vascular DP PULSES (B): 2/4, B/L PT PULSES (B): 2/4, B/L CAPILLARY FILL TIME: immediate, all digi ts, B/L TROPHIC CONDITION-TEXTURE/EL ASTICITY/TURGOR/HAIR GROWTH (B): normal, B/L Nails NAILS are: elongated,overgr own,dystrophic,greater than 3mm thick,discolored and friable with crumbly malodorous subungual debris, with pain on palpation 1-5 Left foot T6 T7 T9
--- OUTSIDE RECORDS SUMMARY | 2024-08-23 13:03 | XMS_ITS ---
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 Generated for Printi micki/Mary/eTransmitting on:?08/23/2024 01:03 PM EDT
--- OUTSIDE RECORDS SUMMARY | 2024-08-23 13:03 | XMS_ITS | Patient Health Record ---
[facility] Organization [facility] Address [address] [place] [address] Care Team Providers Care Software Engineer Kernel Name Role Phone Lukas Gupta MD Primary Care Provider Unavail able Black, Gisell Unavailable [phone] Allergies No Known Allergies Reason For Referral No Information Medications Medication SIG (Take, Route, Frequency, Duration) Notes Start Date End Date Status Ibuprofen 800 MG 1 tablet with food o r milk as needed Orally every 6 hrs for 10 days PRN 10/09/2021 Active Gabapentin 300 MG 1 capsule Orally Onc [...] legs as directed for . 01/24/2018 Not-Taking Tylenol Arthritis Pain Not-Taking Acetaminophen Extra Strength 500 MG 2 tablets as needed Orally every 6 hrs for 5 days 01/05/2018 Not-Taking Gabapentin 300 MG 1 capsule Orally AT BEDTIME for 14 days 10/09/2021 Not-Taking Cephalexin 500 MG 1 capsule Orally twi ce a day for 10 days 10/27/2021 Not-Taking Cephalexin 500 MG 1 capsule Orally twi ce a day for 10 days 08/30/2023 Not-Taking Otezla 30 MG 1 tablet Orally Twic e a day Not-Taking Calcium Active Acetaminophen Extra Strength 500 MG 2 tablet as needed Orally every 6 hrs for 14 days 10/09/2021 Active Clobetasol & Clobetasol Emul Active Calcipotriene 0.005 % Externally Active Levothyroxine Sodium 75 MCG 1 capsule Orally Once a day Active Serevent Diskus 50 MCG/DOSE 1 puff Inhalation Twice a day Not-Taking Simvastatin 20 MG 1 tablet in the evening Orally Once a day Active ProAir HFA Active Desoximetasone Not-T aking Metoprolol Succinate 50 MG Orally twice daily Active Vanicream Not-Taking Quinapril HCl Not-Ta conor Flovent Diskus Not-T aking Latanoprost 0.005 % Ophthalmic for 17 Not-Taking Immunizations Vaccine Route Administration Date Status Comme nts COVID-19 Moderna Vaccine Unknown 08/09/2020 Administered 1st vaccine 10/25 Social History Tobacco Use: Social History Observation Description Date Details (start date - stop date) Never Smoker NA - NA Tobacco Use/Smoking Question Answer Notes Are you a: nonsmoker Additional Findings: Tobacco Non-User Current no n-smoker Alcohol Screen Question Answer Notes Did you have a drink contain ing alcohol in the past year? Yes How often did you have a dri nk containing alcohol in the past year? Never (0 point) How many drinks did you have on a typical day when you were drinking in the past year? 1 or 2 drinks (0 point) How often did you have 6 or more drinks on one occasion in the past year? Never (0 point) Points 0 Interpretation Negative Tobacco use other than smoking: Question Answer Notes Are you an other tobacco user? No Problems Problem Type SNOMED Code ICD Code Onset Dates Problem Status W/U Status Risk Notes Problem Localized, primary osteoarthritis of the ankle and/or foot (555887050) Primary osteoarthritis, right ankle and foot (M19.071) Active confirmed Problem Acquired hallux valgus (43211193) Hallux valgus (acquired), right foot (M20.11) Active confirmed Problem Non-pressure ulcer lower limb (146750894) Non-pressure chronic ulcer of other part of right foot limited to breakdown of skin (L97.511) Active confirmed Problem Acquired hammer toe of right foot (919072878607802 5) Other hammer toe(s) (acquired), right foot (M20.41) Active confirmed Problem Acquired hammer toe of right foot (515832672912492 5) Hammer toe of right foot (M20.41) Active confirmed Improvement Problem Acquired hammer toe of left foot (667740340982977 3) Hammer toe of left foot (M20.42) Active confirmed Improvement Problem 957506670 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) Active confirmed Problem Localized, primary osteoarthritis of the ankle and/or foot (974120534) Arthritis of joint of lesser toe, right (M19.071) Active confirmed Vital Signs Blood pressure diastolic 70 mm Hg 09/09/2023 Height 5 ft 2 in in 04/20/2024 Blood pressure systolic 124 mm Hg 09/09/2023 Weight 146 lbs 04/20/2024 BMI 26.7 kg/m2 04/20/2024 Procedures Procedure Date Ordered Date Performed Result Body Sit e 43275 - Tenotomy, open flexor 08/30/2023 N/A 96876-PLCEDAP NAIL, OR MORE 09/09/2023 N/A 37176-ZSSTMSQ NAIL, 6 OR MORE 12/27/2023 N/A 87755-UAHKTIL NAIL, 6 OR MORE 04/20/2024 N/A 70089-Jpmwnkmh Plate 04/20/2024 N/A Encounters Encounter Location Date Provider Diagnosis [address] [address] 08/30/2023 Gisell Black Hammer toe of right foot M20.[address] [address] 09/09/2023 Gisell Black Tinea unguium B35.1 ; Pain in right toe(s) M79.674 ; Pain in left toe(s) M79.675 and Hammer toe of right foot M20.[address] [address] 12/27/2023 Gisell Black Pain in right foot M79.671 ; Metatarsalgia, right foot M77.41 ; Tinea unguium B35.1 ; Pain in right toe(s) M79.674 ; Pain in left toe(s) M79.675 ; Pain in right ankle and joints of right foot M25.571 ; Bursitis of intermetatarsal bursa of right foot M77.51 and 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 [facility] [address] 04/20/2024 Gisell Black Pain in right foot M79.671 ; Metatarsalgia, right foot M77.41 ; Tinea unguium B35.1 ; Pain in right toe(s) M79.674 ; Pain in left toe(s) M79.675 ; Pain in right ankle and joints of right foot M25.571 ; Bursitis of intermetatarsal bursa of right foot M77.51 ; 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 and Ingrown nail L60.[address] [address] 07/25/2024 Gisell Black Assessments Encounter Date Diagnosis (ICD Code) Assessment Notes Treatment Notes Treatment Clinical Notes Section Notes 08/30/2023 Hammer toe of right foot (ICD-10 - M20.41) 09/09/2023 Tinea unguium (ICD-10 - B35.1) 09/09/2023 Pain in right toe(s) (ICD-10 - M79.674) 12/27/2023 Metatarsalgia, right foot (ICD-10 - M77.41) 12/27/2023 Pain in right foot (ICD-10 - M79.671) 04/20/2024 Metatarsalgia, right foot (ICD-10 - M77.41) 04/20/2024 Pain in right foot (ICD-10 - M79.671) 04/20/2024 Tinea unguium (ICD-10 - B35.1) 12/27/2023 Tinea unguium (ICD-10 - B35.1) 09/09/2023 Pain in left toe(s) (ICD-10 - M79.675) 09/09/2023 Hammer toe of right foot (ICD-10 - M20.41) Improvement 12/27/2023 Pain in right toe(s) (ICD-10 - M79.674) 04/20/2024 Pain in right toe(s) (ICD-10 - M79.674) 04/20/2024 Pain in left toe(s) (ICD-10 - M79.675) 12/27/2023 Pain in left toe(s) (ICD-10 - M79.675) 12/27/2023 Pain in right ankle and joints of right foot (ICD-10 - M25.571) 04/20/2024 Pain in right ankle and joints of right foot (ICD-10 - M25.571) 04/20/2024 Bursitis of intermetatarsal bursa of right foot (ICD-10 - M77.51) 12/27/2023 Bursitis of intermetatarsal bursa of right foot (ICD-10 - M77.51) 12/27/2023 Fat pad atrophy of foot (ICD-10 - L90.9) 04/20/2024 Fat pad atrophy of foot (ICD-10 - L90.9) 04/20/2024 Ingrown nail (ICD-10 - L60.0) Plan Of Treatment Pending Test Test Name Order Date X ray : Foot, right 3V 07/13/2012 52468-ZDMYXZA NAIL, 6 OR MORE 12/21/2012 95933-XXBXAMQ NAIL, 6 OR MORE 03/27/2013 50345-BHIGXFT NAIL, 6 OR MORE 12/13/2017 48238-AMACFOV NAIL, 6 OR MORE 05/02/2018 49298-WHWVVWW NAIL, 6 OR MORE 01/20/2019 40255-FCBYINZ NAIL, 6 OR MORE 04/04/2019 98075-JZMDNHK NAIL, 6 OR MORE 06/16/2019 36673-HQYAMOW NAIL, 6 OR MORE 09/29/2019 51972-JYQRTAD NAIL, 6 OR MORE 12/26/2019 45871-HEEJRWT NAIL, 6 OR MORE 09/27/2020 17712-AFYZHCW NAIL, 6 OR MORE 09/10/2021 18432-GQPCWFB NAIL, 6 OR MORE 01/29/2022 77771-MWFWHHY NAIL, 6 OR MORE 05/07/2022 24226-GNABRLE NAIL, 6 OR MORE 08/13/2022 93928-QQNQCCC NAIL, 6 OR MORE 01/11/2023 11258-HNVWWNS NAIL, 6 OR MORE 05/17/2023 87933-NRTSIMQ NAIL, 6 OR MORE 09/09/2023 43031-GTFAPZJ NAIL, 6 OR MORE 12/27/2023 97603-XGRVAPE NAIL, 6 OR MORE 04/20/2024 66548-WBZEOLF NAIL, -08/14/2013 13204-MCRHDDY NAIL, -11/13/2013 47881-HVZQHTL NAIL, -02/21/2014 07572-WVCMLIP NAIL, -10/10/2014 59171-GLEWCGX NAIL, -02/06/2015 29465-UXLCXYC NAIL, -06/12/2015 44382-AAFIFHS NAIL, 06-1111/27/2015 16396-Scjn Destruction, 06-2002/06/2015 72914-Cnql Destruction, 06-2002/21/2014 36097-Grvv Destruction, 06-2012/26/2019 35142-Xryx Destruction, 06-2009/27/2020 42092-Jeqr Destruction, 06-2009/29/2019 36004-Fvrh Destruction, 06-2006/16/2019 27255-Jxvkzuah Plate 09/10/2021 10789-Uuybyxyg Plate 09/27/2020 45739-Ndseeyru Plate 12/26/2019 10217-Atyqmslh Plate 02/06/2015 79663-Dxxaxjdr Plate 04/20/2024 07129-Wjzwpete Plate 08/13/2022 17656-Klpeczdo Plate 01/29/2022 22283- Debride <25 sq cm 07/13/2012 37043- Debride <25 sq cm 08/14/2013 14561- Debride <25 sq cm 03/27/2013 38692- Debride <25 sq cm 12/21/2012 96221- Debride <25 sq cm 09/21/2012- Ganglion Cyst Injection/Aspiratio n 01/20/2019- Ganglion Cyst Injection/Aspiratio n 04/04/2019 87078 - Tenotomy, open flexor 08/30/2023 Next Appt Details Provider Name:Gisell Sanderson , 09/25/2024 08:30:00 AM, [address] [facility], [place], [address], Insurance Providers Payer Name Payer Address Payer Phone Subscriber Number Group Number Insured Name Patient Relationship to Insured Coverage Start Date Coverage End Date Medicare National [employer] [address] [place] [address] [id number] Vidhi Carballo Self - patient is the insured AARP Secondary to Medicare [address] [place] [id number] Vidhi Carballo Self - patient is the insured Medical (General) History Medical History History ICD Code Arthritis asthma back, hip, knee pain high blood pressure osteoporosis psoriasis thyroid disorder chicken pox mumps measles Surgical History Surgery Date(Month/Year) appendectomy hysterectomy bladder suspension right hip replacement 04/23/2014 cataract surgery OU 04/2015 HT repair 2,3 L DIPJ+PIPJ w Tolu Painter rayna & Capsulotomy 2,3 L 01/12/2018 Oro right Hammertoe repair 1st and s econd right B/P 10/15/2021
== END 2024-08-23 11:36 | disposition home or self-care (01) ==
LOC: HO.HMCSH 10:52
PROVIDERS: PCP Internal Medicine; Visit Provider Physician Assistant Medical
DX: I10 Essential (primary) hypertension (principal); E78.00 Pure hypercholesterolemia, unspecified; E03.9 Hypothyroidism, unspecified; M19.90 Unspecified osteoarthritis, unspecified site; C44.320 Squamous cell carcinoma of skin of unspecified parts of face; J44.9 Chronic obstructive pulmonary disease, unspecified; M81.0 Age-related osteoporosis without current pathological fracture; L40.9 Psoriasis, unspecified; M17.11 Unilateral primary osteoarthritis, right knee; R05.9 Cough, unspecified

== ENCOUNTER → 2024-08-23 10:52 | Outpatient (BNVA) | payer MEDICARE, SELFPAY | PROVIDERS: PCP Internal Medicine; Visit Provider Physician Assistant Medical | DX: I10 Essential (primary) hypertension (principal); E78.00 Pure hypercholesterolemia, unspecified; E03.9 Hypothyroidism, unspecified; C44.320 Squamous cell carcinoma of skin of unspecified parts of face; J44.9 Chronic obstructive pulmonary disease, unspecified; M81.0 Age-related osteoporosis without current pathological fracture; L40.9 Psoriasis, unspecified; M17.11 Unilateral primary osteoarthritis, right knee; R05.9 Cough, unspecified | CPT/HCPCS: 99212 ==

== ENCOUNTER 2024-08-24 09:09 | Outpatient (REF) | payer MEDICARE, SELFPAY ==
--- NOTE | ~2024-08-24 | XR_ITS ---
EXAMINATION: XR CHEST 2 VIEWS HISTORY: R05.9 - Cough, unspecified COMPARISON: There are no prior studies for comparison. FINDINGS: PA and lateral views of the chest are submitted. There is linear scarring at the right lung base. The left lung is clear. There is no pleural effusion, pneumothorax, or pulmonary vascular congestion. The heart is normal in size. The aorta is tortuous and calcified. There is a small hiatal hernia. There is degenerative disc disease of the spine. XR/XR chest 2V IMPRESSION: Right basilar scarring. Small hiatal hernia. Electronically signed by: Lukas Huerta MD 08/24/2024 01:59 PM EDT
[2024-08-24 10:10] LABS: MANUAL DIFF FLAG NO
[2024-08-24 10:22] LABS: Estimated Average Glucose 108 mg/dL; Hemoglobin A1c % 5.4 % (<6.0)
[2024-08-24 10:24] LABS: Basophils Absolute Auto 0.1 X10*3/uL (0.0-0.2); Basophils Percent Auto 1.1 % (0-2); Eosinophils Absolute Auto 1.5 X10*3/uL (0.0-0.4); Eosinophils Percent Auto 18.6 % (0-4); Hematocrit 44.5 % (37.0-47.0); Hemoglobin 14.3 g/dl (12.0-16.0); Imm Gran Abs Auto 0.02 X10*3/uL (0.00-0.03); Imm Gran Pct Auto 0.3 % (0.0-0.4); Lymphocytes Absolute Auto 2.2 X10*3/uL (1.2-4.9); Lymphocytes Percent Auto 28.3 % (20-40); Mean Corpuscular HGB Conc 32.1 g/dl (31.0-35.0); Mean Corpuscular Hemoglobin 29.7 pg (27.0-33.0); Mean Corpuscular Volume 92.3 fL (80.0-98.0); Mean Platelet Volume 10.3 fL (9.4-12.3); Monocytes Absolute Auto 0.7 X10*3/uL (0.1-1.2); Monocytes Percent Auto 8.8 % (2-11); Neutrophils Absolute Auto 3.4 x10*3/uL (2.0-8.3); Neutrophils Percent Auto 42.9 % (45-73); Platelet Count 236 X10*3/uL (160-400); Red Blood Count 4.82 X10*6/uL (4.20-5.50); Red Cell Distribution Width 14.5 % (11.0-16.0); White Blood Count 7.9 X10*3/uL (4.8-10.8)
[2024-08-24 10:55] LABS: B Type Natriuretic Peptide 19 pg/mL (<100)
[2024-08-24 10:59] LABS: Parathyroid Hormone Intact 99.8 pg/mL (8.7-77.1)
[2024-08-24 11:07] LABS: Alanine Aminotransferase 19 U/L (0-31); Albumin Level 3.8 g/dL (3.5-5.0); Alkaline Phosphatase 81 U/L (39-117); Anion Gap 12 (12-20); Aspartate Amino Transferase 42 U/L (5-31); Bilirubin Direct 0.2 mg/dL (0.0-0.5); Bilirubin Total 0.5 mg/dL (0.0-1.0); Blood Urea Nitrogen 12 mg/dL (9-16); C Reactive Protein 0.15 mg/dL (< or = 0.50); Calcium 9.4 mg/dL (8.4-10.2); Carbon Dioxide 24 mmol/L (22-29); Chloride 108 mmol/L (96-108); Cholesterol 182 mg/dL (<200); Estimated Glomerular Filt Rate > 60; Glucose Fasting 112 mg/dL (60-99); HDL Cholesterol 68 mg/dL (>40); LDL Cholesterol Calculated 91 mg/dL (<100); Potassium 3.8 mmol/L (3.3-5.1); Sodium 140 mmol/L (135-145); Total Protein 7.4 g/dL (6.5-8.0); Triglycerides 119 mg/dL (<150)
[2024-08-24 11:09] LABS: Vitamin D 25-OH Total 36.3 ng/mL (>30)
[2024-08-24 11:14] LABS: Erythrocyte Sedimentation Rate 9 MM/HR (0-20)
[2024-08-24 11:23] LABS: Folate 12.6 ng/mL (> or = 4.0); Vitamin B12 282 pg/mL (200-900)
[2024-08-27 22:08] LABS: Zinc 74 mcg/dL (60-130)
[2024-09-03 01:13] LABS: Vitamin B1 12 nmol/L (8-30)
== END 2024-08-24 09:10 | disposition home or self-care (01) ==
LOC: HO.HMGCX 09:09
PROVIDERS: PCP Internal Medicine; Visit Provider Physician Assistant Medical
DX: Z00.00 Encounter for general adult medical examination without abnormal findings (principal); R05.9 Cough, unspecified; R60.0 Localized edema; K44.9 Diaphragmatic hernia without obstruction or gangrene
CPT/HCPCS: 36415; 71046; 80053; 80061; 80076; 82248; 82306; 82550; 82607; 82746; 83036; 83735; 83880; 83970; 84100; 84425; 84443; 84630; 85025; 85652; 86140

== ENCOUNTER 2024-09-05 13:46 | Outpatient (AMB) | payer MEDICARE, SELFPAY ==
--- NOTE | 2024-09-05 13:51 | A.OFFVIS_ITS ---
Vital Signs 09/05/24 13:58 Height 5 ft 2.25 in Weight 146 lb 9.718 oz BMI 26.6 BP 128/72 Blood Pressure Location Rt brachial Position Sitting Pulse 75 Pulse Source Pulse Oximeter Pulse Oximetry (%) 95 Oxygen Delivery Method Room Air Intake Visit Reasons: Elevated PTH Intake Note: New patient internally referred by PCP for Elevated PTH. 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 And Reducer Machine Required: No Accompanied by: Self / Same As Patient Allergies No Known Allergies [No Known Allergies*] Allergy (Verified 09/05/24 13:59) Medication List - Last Reconciled 09/05/24 by Lukas Seymour MD albuterol sulfate 90 mcg/actuation 1 inh inhalation Q4-6H PRN aspirin 81 mg PO DAILY atorvastatin 20 mg PO DAILY calcium carbonate-vit D3-min 600 mg-10 mcg (400 unit) 1 tab PO BID fluticasone propion-salmeterol 250-50 mcg/dose 1 inh inhalation BID hydrochlorothiazide 25 mg PO DAILY ibuprofen 800 mg PO Q6H PRN levothyroxine 75 mcg PO DAILY metoprolol tartrate 25 mg PO DAILY HPI Comments Details: 88 YO F with PMHx of HTN on HCTZ who is seen in consultation at the request of PCP forelevated PTH .The patient is an 88-year-old female presenting with a mild elevation of parathyroid hormone (PTH). The elevation could potentially be attributed to the use of hydrochlorothiazide (HCTZ), which the patient denies using. There is a possibility the PTH elevation is due to a lab error, as previous issues with PTH results have been noted. The patient reports no history of kidney stones or osteoporosis. The thyroid is underactive, but this issue is not identified as the cause for the current elevation in PTH. Currently using Calcium supplement 1200. Takes 400 IU of Vitamin D daily. ? Not Currently using HCTZ. 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 Rectocele Vaginal vault prolapse Osteoporosis Obstructive airway disease Squamous cell carcinoma of face Osteoarthritis Hypothyroidism Mild hypercholesterolemia Hypertension Cough Surgical History Hx of cataract surgery History of bunionectomy History of total right knee replacement History of right hip replacement History of left hip replacement Hx of hernia repair Hx of appendectomy Family History Mother No known health problems Father No known health problems Social History Alcohol intake: current Alcohol intake frequency: holidays/special occasions only Patient Tobacco Use Status: Former Tobacco user Physical Exam Vital Signs: Last Vital Signs Pulse 75 09/05/24 13:58 BP 128/72 09/05/24 13:58 Pulse Ox 95 09/05/24 13:58 Oxygen Delivery Method Room Air 09/05/24 13:58 BMI result Body Mass Index 26.6 Assessment & Plan Assessment & Plan (1) Elevated parathyroid hormone: Code(s): R79.89 - Other specified abnormal findings of blood chemistry Category: Medical Plan: This is a 88-year-old white female with a history of elevated PTH most likely secondary to hydrochlorothiazide use. Other differential diagnosis includes normocalcemic primary hyperparathyroidism. Other differential include spurious elevation of PTH due to laboratory error Plan is to talk to the primary care provider about holding the h ydrochlorothiazide for about 6 weeks time and rechecking calcium, PTH and albumin at that point. If PTH normalizes, there is no need for any further endocrine workup or follow up. If the PTH remains elevated on repeat draw in 6 weeks, the patient can be sent to a outside such as [facility] ([facility]) to check to see if PTH is elevated there. If repeat PTH here and and [facility] is elevated, patient be returned back to endocrinology for further assessment for hyperparathyroidism. 1. Mild elevation of parathyroid hormone (PTH): The slightly elevated parathyroid hormone level requires verification regarding the patient's use of hydrochlorothiazide (HCTZ), which she denies. Contact with the primary care provider is planned to confirm this detail. A follow-up with retesting of PTH and calcium levels at a different lab is advised to rule out laboratory discrepancies. Further intervention, such as assessment for parathyroid growth, will only be considered if elevated levels persist, given the absence of symptomatic complications like osteoporosis or kidney stones. During the visit, I discussed with the patient the implications of the elevated parathyroid hormone level. The possibility of hydrochlorothiazide (HCTZ) influencing this elevation was a topic of consideration, although the patient denies taking the medication. Issues related to the lab?s accuracy were also reviewed, prompting the recommendation to repeat the tests elsewhere. Follow-up with her primary care provider was advised to ensure she is not taking HCTZ. We discussed the potential necessity of further investigation should the tests continue to show elevated numbers, including the potential presence of a parathyroid adenoma, with surgery being a distant consideration should her condition or symptoms change. - Verify with your primary care provider whether or not you are taking hydrochlorothiazide (HCTZ). - Bring a list of your current medications to your appointment with your primary provider for verification. - Consider retesting PTH and calcium levels at the [facility] lab on [facility] to ensure accuracy. - Follow up with your primary care provider regarding these instructions and the outcome of the retests. - The patient had an opportunity to ask questions regarding treatment plan. The patient expressed understanding and agreement with the above treatment plan. . Patient was informed and verbally consented to the use of an ambient scribe for clinic note documentation during this visit. Coding Level of Care Code New Pt Level 4 (94326) Diagnoses Elevated parathyroid hormone R79.89
[2024-09-05 13:58] VITALS: BP 128/72; PULSE 75; O2SAT 95; BMI 26.6
--- OUTSIDE RECORDS SUMMARY | 2024-09-05 16:24 | XMS_ITS ---
Author Organization [facility] Address [address] [place] [address] Care Team Providers Care Brand Strategist Name Role Phone Alonso LEE, Lukas Primary Care Provider Unavail able Kin Gisell Unavailable [phone] REASON FOR VISIT rs 07/27/2024 Encounters Encounter Location Date Provider Diagnosis [address] [address] 07/25/2024 Gisell Sanderson Plan Of Treatment Next Appt Details Provider Name:Gisell Sims Kin , 09/25/2024 08:30:00 AM, [address] [place] [address], [address], Progress Notes * Vidhi MELENDREZ MDOB:1935 (88 yo F)Acc No.[id number]:07/25/2024 Patient:?Vidhi MELENDREZ :1935???Age:88 Y???Sex:Female Address:[address] [place] [address], [address] * true * Date:? Generated for Printi micki/Mary/eTransmitting on:?09/05/2024 04:24 PM EDT
--- OUTSIDE RECORDS SUMMARY | 2024-09-05 16:25 | XMS_ITS | Patient Health Record ---
[facility] Address [address] [place] [address] Care Team Providers Care Stock Puller Name Role Phone Lukas Gupta MD Primary Care Provider Unavail able Black, Gisell Unavailable [phone] Allergies No Known Allergies Reason For Referral [...] primary osteoarthritis of the ankle and/or foot (368813856) Primary osteoarthritis, right ankle and foot (M19.071) Active confirmed Problem Acquired hallux valgus (77699357) Hallux valgus (acquired), right foot (M20.11) Active confirmed Problem Non-pressure ulcer lower limb (341925814) Non-pressure chronic ulcer of other part of right foot limited to breakdown of skin (L97.511) Active confirmed Problem Acquired hammer toe of right foot (918365272566393 5) Other hammer toe(s) (acquired), right foot (M20.41) Active confirmed Problem Acquired hammer toe of right foot (592269892529436 5) Hammer toe of right foot (M20.41) Active confirmed Improvement Problem Acquired hammer toe of left foot (366279861719146 3) Hammer toe of left foot (M20.42) Active confirmed Improvement Problem 638475878 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) Active confirmed Problem Localized, primary osteoarthritis of the ankle and/or foot (389435266) Arthritis of joint of lesser toe, right (M19.071) Active confirmed Vital Signs Blood pressure diastolic 70 mm Hg 09/09/2023 Height 5 ft 2 in in 04/20/2024 Blood pressure systolic 124 mm Hg 09/09/2023 Weight 146 lbs 04/20/2024 BMI 26.7 kg/m2 04/20/2024 Procedures Procedure Date Ordered Date Performed Result Body Sit e 75921-WNOSMYP NAIL, 6 OR MORE 09/09/2023 N/A 09446-DSCWNYR NAIL, OR MORE 12/27/2023 N/A 34582-DHYNVCE NAIL, 6 OR MORE 04/20/2024 N/A 81499-Vacnuzyi Plate 04/20/2024 N/A Encounters Encounter Location Date Provider Diagnosis [address] [address] 09/09/2023 Gisell Black Tinea unguium B35.1 ; Pain in right toe(s) M79.674 ; Pain in left toe(s) M79.675 and Hammer toe of right foot M20.[address] [address] 12/27/2023 Gisell Black Pain in right foot M79.671 ; Metatarsalgia, right foot M77.41 ; Tinea unguium B35.1 ; Pain in right toe(s) M79.674 ; Pain in left toe(s) M79.675 ; Pain in right ankle and joints of right foot M25.571 ; Bursitis of intermetatarsal bursa of right foot M77.51 and 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 [address] 04/20/2024 Gisell Black Pain in right foot M79.671 ; Metatarsalgia, right foot M77.41 ; Tinea unguium B35.1 ; Pain in right toe(s) M79.674 ; Pain in left toe(s) M79.675 ; Pain in right ankle and joints of right foot M25.571 ; Bursitis of intermetatarsal bursa of right foot M77.51 ; 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 and Ingrown nail L60.0 [facility] [place] [address] [place] [address] 07/25/2024 Gisell Sanderson Assessments Encounter Date Diagnosis (ICD Code) Assessment Notes Treatment Notes Treatment Clinical Notes Section Notes 09/09/2023 Tinea unguium (ICD-10 - B35.1) 09/09/2023 [...] X ray : Foot, right 3V 07/13/2012 39963-LIECSCE NAIL, 6 OR MORE 12/21/2012 97485-HNHBZLD NAIL, 6 OR MORE 03/27/2013 79317-KOWIQYX NAIL, 6 OR MORE 12/13/2017 43889-FASVKPB NAIL, 6 OR MORE 05/02/2018 69061-GOFISSR NAIL, 6 OR MORE 01/20/2019 33817-IHOKHJN NAIL, 6 OR MORE 04/04/2019 08407-RMCFLHI NAIL, 6 OR MORE 06/16/2019 93034-XSRLEDV NAIL, 6 OR MORE 09/29/2019 79893-KINUIHU NAIL, 6 OR MORE 12/26/2019 29752-AMVGNGZ NAIL, 6 OR MORE 09/27/2020 05184-IOERGFV NAIL, 6 OR MORE 09/10/2021 02609-XZCLGZH NAIL, 6 OR MORE 01/29/2022 73219-PHSBNXH NAIL, 6 OR MORE 05/07/2022 83692-MLCIGMJ NAIL, 6 OR MORE 08/13/2022 14134-ASPPTWD NAIL, 6 OR MORE 01/11/2023 53273-DKIETFK NAIL, 6 OR MORE 05/17/2023 39607-XGCEPRO NAIL, 6 OR MORE 09/09/2023 30973-RGRSHQC NAIL, 6 OR MORE 12/27/2023 82951-AIOBYCZ NAIL, 6 OR MORE 04/20/2024 92754-YNPMEDI NAIL, 1-5 08/14/2013 77895-YKTWVTJ NAIL, 1-5 11/13/2013 97913-ZPGSQXU NAIL, 1-5 02/21/2014 40473-CICJYMO NAIL, 1-5 10/10/2014 55226-MYTSJYJ NAIL, 1-5 02/06/2015 28360-ZHAOTQC NAIL, -06/12/2015 41363-RHDSLCC NAIL, -11/27/2015 32045-Ehej Destruction, -02/06/2015 28006-Dvnl Destruction, -02/21/2014 25675-Yztm Destruction, -12/26/2019 18378-Kqfq Destruction, -09/27/2020 30180-Rhco Destruction, 06-2009/29/2019 44615-Yfrv Destruction, -06/16/2019 07382-Kwsmdlqy Plate 09/10/2021 05055-Bhbnwcbg Plate 09/27/2020 72126-Gepnyscb Plate 12/26/2019 88040-Ypdhamme Plate 02/06/2015 83291-Wbrpuodx Plate 04/20/2024 95741-Qkichyjl Plate 08/13/2022 07377-Woykfitc Plate 01/29/2022 33096- Debride <25 sq cm 07/13/2012 85683- Debride <25 sq cm 08/14/2013 56363- Debride <25 sq cm 03/27/2013 42234- Debride <25 sq cm 12/21/2012 25790- Debride <25 sq cm 09/21/2012 80940- Ganglion Cyst Injection/Aspiratio n 01/20/2019- Ganglion Cyst Injection/Aspiratio n 04/04/2019 31709 - Tenotomy, open flexor 08/30/2023 Next Appt Details Provider Name:Gisell Sanderson , 09/25/2024 08:30:00 AM, [address] [place], [address], Insurance Providers Payer Name Payer Address Payer Phone Subscriber Number Group Number Insured Name Patient Relationship to Insured Coverage Start Date Coverage End Date Medicare [facility] [address] [place] [address] [phone] [id number] Vidhi Carballo Self - patient is the insured AARP Secondary to Medicare [address] [place] [address] [id number] Vidhi Carballo Self - patient is the insured Medical (General) History Medical History History ICD Code Arthritis asthma back, hip, knee pain high blood pressure osteoporosis psoriasis thyroid disorder chicken pox mumps measles Surgical History Surgery Date(Month/Year) appendectomy hysterectomy bladder suspension right hip replacement 04/23/2014 cataract surgery OU 04/2015 HT repair 2,3 L DIPJ+PIPJ w Tolu Painter & Capsulotomy 2,3 L 01/12/2018 Oro right Hammertoe repair 1st and s econd right B/P 10/15/2021
--- OUTSIDE RECORDS SUMMARY | 2024-09-05 16:25 | XMS_ITS ---
[facility] Organization [facility] Address [address] [place] [address] Care Team Providers Care Business Management Specialist Name Role Phone Lukas Gupta MD Primary Care Provider Unavail able Gisell Sanderson Unavailable [phone] Allergies No Known Allergies REASON FOR VISIT [...] Ordered Date Performed Result Body Sit e 92930-OYCDCAD NAIL, 6 OR MORE 04/20/2024 N/A 05138-Orcitahp Plate 04/20/2024 N/A Encounters Encounter Location Date Provider Diagnosis [facility] [address] [address] 04/20/2024 Gisell Black Pain in right foot [...] Treatment Pending Test Test Name Order Date 45821-ETOFWDJ NAIL, 6 OR MORE 04/20/2024 31739-Nnbnlsyq Plate 04/20/2024 Next Appt Details Follow Up: prn, Reason: Provider Name:Gisell Sanderson , 09/25/2024 08:30:00 AM, [address] [place] [address], [phone], Procedure Notes * Category Sub-Category Detail Notes [...] Motrin was recommended for pain or discomfort (41963) Anesthesia , was accomplished T OPICALLY with [...] use of a nail nipper and/or dremel-type organ grinder, to a more viable healthy nail plate or bed tissue 6-10. Silver nitrate used for any petechial bleeding as necessary. Definitive antifungal treatment options have been reviewed and discussed with the patient. The patient chooses, no pharmaceutical tx - [address]26 Progress Notes * Vidhi MELENDREZ MDOB:1935 (88 yo F)Acc No.[id number]:04/20/2024 Progress Note Patient:?Vidhi MELENDREZ M Provider:?Gisell Sanderson DPM :1935???Age:88 Y???Sex:Female D ate:04/20/2024 Address:[address] [place], [place] [phone] Pcp:Lukas Gupta MD Subjective: * Chief Complaints: [...] - L60.0??? Plan: * Treatment: 2.?Ingrown nail?Procedure: 97900-Bgumoyhd Plate * Procedures:?Debride Nail 6-10:?Nail debridement?Performance of this nail treatment by a nonprofessional would put this patients foot and overall health at risk. Therefore, debridement to affected nail(s), as described in exam, was performed extensively to reduce/remove overall nail length, girth, thickness, subungual debris, and necrotic tissue, by manual and/or electrical means through the use of a nail nipper and/or dremel-type organ grinder, to a more viable healthy nail plate or bed tissue 6-10. Silver nitrate used for any petechial bleeding as necessary. Definitive antifungal treatment options have been reviewed and discussed with the patient. The patient chooses, no pharmaceutical tx - 25373.?Nail Avulsion:?Location?, Lateral nail border, T5.?Anesthesia?, was accomplished [...] Motrin was recommended for pain or discomfort (81969).? * Procedure Codes:?92376 DEBRI DE NAIL, 6 OR MORE, Modifiers: XS 83218 Avulsion Plate, Modifiers: TA * Preventive Medicine:? [...] * Sign off status: Completed true * Provider:?Gsiell Sanderson DPM Date:?2023 Generated for Gutierrez sweet/Mary/Alexanderitting on:?09/05/2024 04:24 PM EDT History and Physical Notes * [...]
--- OUTSIDE RECORDS SUMMARY | 2024-09-05 16:25 | XMS_ITS ---
Author Organization [facility] Address [address] [place] [address] Care Team Providers Care Small Craft Operator Name Role Phone Alonso LEE, Lukas Primary Care Provider Unavail Gisell Parker [phone] Encounters Encounter Location Date Provider Diagnosis [address] [address] 07/27/2024 Gisell Sanderson Plan Of Treatment Next Appt Details Provider Name:Gisell Sanderson , 09/25/2024 08:30:00 AM, [address] [place] [address], [phone], Progress Notes * Vidhi MELENDREZ MDOB:1935 (88 yo F)Acc No.[id number]:07/27/2024 Progress Note Patient:?PARVIN Vidhi Rider Provider:?Gisell Sanderson DPM :1935???Age:88 Y???Sex:Female D ate:07/27/2024 Address:[address] [place] [id number] Pcp:Lukas Gupta MD Subjective: * Chief Complaints: [...] Sanderson DPM Date:?2024 Generated for Gutierrez sweet/Mary/Alexanderitting on:?09/05/2024 04:24 PM EDT
== END 2024-09-05 14:21 | disposition home or self-care (01) ==
LOC: HO.ENCR 13:47
PROVIDERS: PCP Internal Medicine; Visit Provider Internal Medicine Endocrinology, Diabetes & Metabolism
DX: R79.89 Other specified abnormal findings of blood chemistry (principal)
CPT/HCPCS: 99204

== ENCOUNTER → 2024-09-05 13:46 | Outpatient (BNVA) | payer MEDICARE, SELFPAY | PROVIDERS: PCP Internal Medicine; Visit Provider Internal Medicine Endocrinology, Diabetes & Metabolism | DX: R79.89 Other specified abnormal findings of blood chemistry (principal) | CPT/HCPCS: 99202 ==

== ENCOUNTER 2024-09-06 09:15 | Outpatient (AMB) | payer MEDICARE, SELFPAY ==
--- NOTE | 2024-09-06 09:44 | MHC.PC.OV ---
Vital Signs 09/06/24 09:49 Height 5 ft 2.75 in Weight 148 lb BMI 26.4 BP 128/78 Blood Pressure Location Lt brachial Pulse 74 Pulse Source Pulse Oximeter Temp 98.4 F Pulse Oximetry (%) 94 Intake Visit Reasons: 2 week f/u, BP check Allergies No Known Allergies [No Known Allergies*] Allergy (Verified 09/06/24 09:58) Medication List - Last Reconciled 09/06/24 by Edwina Zuleta PA-C albuterol sulfate 90 mcg/actuation 1 inh inhalation Q4-6H PRN aspirin 81 mg PO DAILY atorvastatin 20 mg PO DAILY calcium carbonate-vit D3-min 600 mg-10 mcg (400 unit) 1 tab PO BID fluticasone propion-salmeterol 250-50 mcg/dose 1 inh inhalation BID hydrochlorothiazide 25 mg PO DAILY ibuprofen 800 mg PO Q6H PRN levothyroxine 75 mcg PO DAILY metoprolol tartrate 25 mg PO DAILY PFSH Medical History (Updated 09/06/24 @ 13:14 by Edwina Zuleta PA-C) Overweight with body mass index (BMI) of 26 to 26.9 in adult Elevated parathyroid hormone History of mammogram (~04/23/22) Primary osteoarthritis of right knee Hammertoe Cataract Glaucoma Psoriasis 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 Rectocele Vaginal vault prolapse Osteoporosis Obstructive airway disease Squamous cell carcinoma of face Osteoarthritis Hypothyroidism Mild hypercholesterolemia Hypertension Cough Surgical History Hx of cataract surgery History of bunionectomy History of total right knee replacement History of right hip replacement History of left hip replacement Hx of hernia repair Hx of appendectomy Family History Mother No known health problems Father No known health problems Social History Alcohol intake: current Alcohol intake frequency: holidays/special occasions only Patient Tobacco Use Status: Former Tobacco user Questionnaire PHQ-9 Over the last 2 weeks, how often have you been bothered by any of the following problems? 1. Little interest or pleasure in doing things: not at all 2. Feeling down, depressed, or hopeless: not at all 3. Trouble falling or staying asleep, or sleeping too much: several days 4. Feeling tired or having little energy: several days 5. Poor appetite or overeating: not at all 6. Feeling bad about yourself - or that you are a failure or have let yourself or your family down: not at all 7. Trouble concentrating on things, such as reading the newspaper or watching television: not at all 8. Moving or speaking so slowly that other people could have noticed. Or the opposite - being so fidgety or restless that you have been moving around a lot more than usual: not at all 9. Thoughts that you would be better off or of hurting yourself in some way: not at all Total score: 2 Depression Screening Interpretation: Negative Depression Screening Done: Yes 11530 - PHQ-9 Billing: Yes Source: Developed by Drs. Lukas Pinto, Sujey Suero, Ismael Mcbride and colleagues, with an educational mahogany from [employer]. Thrive Questionnaire Date Thrive assessed: 09/06/24 I am a: Patient What is your living situation today?: I have a steady place to live Within the past 12 months, did the food you bought not last and you didn't have the money to get more?: Never true Within the past 12 months, did you worry whether your food would run out before you got money to buy more?: Never true Do you have trouble paying for medicines?: No Do you have trouble getting transportation to medical appointments?: No Do you have trouble paying your heating and electricity bill?: No Do you have trouble taking care of your child, family member or friend?: No Do you have trouble with day-to-day activities such as bathing, preparing meals, shopping, managing finances, etc.?: No Are you currently unemployed and looking for a job?: No Are you interested in more education?: No THRIVE Score: 0 AUDIT C Alcohol Use Questionnaire (AUDIT-C) 1. How often do you have a drink containing alcohol?: Monthly or less 3. How often do you have six or more drinks on one occasion?: Never Total Score: 1 Score Reviewed/Action Taken: No FRANCHESCA-7 AMB Questionnaire FRANCHESCA-7 Date FRANCHESCA - 7 assessed: 09/06/24 Feeling nervous, anxious, or on edge: 0 = Not at all Not being able to stop or control worryin = Not at all Worrying too much about different things: 0 = Not at all Trouble relaxin = Not at all Being so restless that it is hard to sit still: 0 = Not at all Becoming easily annoyed or irritable: 0 = Not at all Feeling afraid as if something awful might happen: 0 = Not at all Total FRANCHESCA-7 score (0-4 normal; 5-9 mild; 10-14 moderate; 15-21 severe): 0 Source: Developed by Drs. Lukas Pinto, Sujey Suero, Ismael Mcbride and colleagues, with an educational mahogany from [employer]. FRANCHESCA-7 Assessment Billing FRANCHESCA-7 Assessment Tool: FRANCHESCA-7 Assessment 31268 Physical exam (Primary Care) Vital Signs: Last Vital Signs Temp 98.4 F 09/06/24 09:49 Pulse 74 09/06/24 09:49 BP 140/67 H 09/06/24 09:49 Pulse Ox 94 09/06/24 09:49 Care Plan Goal for BP management: <130/80 at Goal BMI result Body Mass Index 26.4 BMI Assessment/Plan discussion: High BMI High, discussed plan: lifestyle, weight reduction, dietary, physical activity and alcohol moderation Tobacco/Smoking Status: Tobacco use Status Patient Tobacco Use Status Former Tobacco user 09/06/24 09:47 PHQ-9: PHQ-9 Score PHQ-9: Total score 2 09/06/24 09:59 Depression Screening Interpretation: Negative Thrive Assessment: Date of Thrive Assessment Date Thrive assessed 09/06/24 09/06/24 09:53 Coding Level of Care Code Est Pt Level 4 (78945) Complex EM visit Add On G2211 Diagnoses Elevated parathyroid hormone R79.89 Overweight with body mass index (BMI) of 26 to 26.9 in adult E66.3; Z68.26 Hypertension I10 Additional Codes FRANCHESCA-7 Assessment Billing - FRANCHESCA-7 Assessment Tool: FRANCHESCA-7 Assessment 94789 ([id number]) PHQ-9 - 15195 - PHQ-9 Billing: Yes ([id number]) Assessment & Plan Assessment & Plan (1) Elevated parathyroid hormone: Code(s): R79.89 - Other specified abnormal findings of blood chemistry Category: Medical Plan: We will stop hydrochlorothiazide for a period of six weeks and re-evaluate parathyroid hormone levels. Subsequent steps will be determined based on updated parathyroid and calcium levels. (2) Overweight with body mass index (BMI) of 26 to 26.9 in adult: Code(s): E66.3 - Overweight; Z68.26 - Body mass index [BMI] 26.0-26.9, adult Category: Medical Plan: Patient to improve her diet and exercise regimen. Condition is chronic and stable continue to monitor. (3) Hypertension: Code(s): I10 - Essential (primary) hypertension Category: Medical Plan: The patient should maintain regular monitoring of her blood pressure, continuing her current antihypertensive regimen to control elevated readings. Plan Plan Patient was informed and verbally consented to the use of an ambient scribe for clinic note documentation during this visit. 1. Essential Hypertension The patient should maintain regular monitoring of her blood pressure, continuing her current antihypertensive regimen to control elevated readings. 2. Other specified abnormal findings of blood chemistry Patient will check if she has hydrochlorothiazide at home and if she does We will stop hydrochlorothiazide for a period of six weeks and re-evaluate parathyroid hormone levels. Subsequent steps will be determined based on updated parathyroid and calcium levels. Discussion Notes During today's discussion, I reviewed the relationship between hydrochlorothiazide and its potential influence on elevated parathyroid hormone levels with the patient. I recommended halting this medication to determine if it affects her parathyroid hormone levels, with a plan to reassess through laboratory testing in six weeks. We agreed upon the necessity to maintain optimal blood pressure control, and continuing her other medications was advised. Follow-up will be required to evaluate the lab results, ensuring her levels normalize or to consider additional real estate loan processor referrals if necessary. Overall health maintenance and monitoring will be focused on keeping her current blood pressure under control and addressing any hormonal irregularities noted. Orders: Orders Parathyroid Hormone Intact 6 Weeks Z00.00 - Encounter for general adult medical examination without abnormal findings Comprehensive Met. Panel 6 Weeks Z00.00 - Encounter for general adult medical examination without abnormal findings Patient Instructions: Patient Instructions - Continue monitoring your blood pressure at home and keep a record of the readings. - Discontinue hydrochlorothiazide for six weeks if you are taking this medication. - Follow up in six weeks for repeat parathyroid hormone and calcium level testing. - Continue taking your prescribed medications including metoprolol and baby aspirin. - Report any new symptoms or concerns as needed. - Return to the office for a follow-up appointment in six weeks. Scribe Plan - Not visible on output: History of Present Illness The patient is an 88-year-old female presenting for follow-up to discuss her elevated parathyroid hormone and to discuss her blood pressure. The patient reports experiencing varying blood pressure readings at home, consistent with essential hypertension management. Her reported home blood pressure has ranged around 131/70 mmHg with a stable measurement of 128/[address] Seymour's office. The patient has a history of medication adherence issues, especially concerning hydrochlorothiazide. Despite being on her medication list since December, she disputes taking it, underscoring the necessity to reassess her parathyroid hormone levels in the absence of the diuretic. She confirms taking her usual medications, which include metoprolol, baby aspirin, and a Centrum multivitamin. Her condition appears stable under current management without significant new complaints. Social History - Family Status: Looking forward to an upcoming family event, indicating strong family ties, supportive social structures, with no disruptions in her living environment noted. Review of Systems - Cardiovascular: Reports stable blood pressure at home. - Endocrine: Denies any symptoms related to high parathyroid hormone, such as bone pain or muscle weakness. Physical Exam Appearance: Alert. Oriented X3. No acute distress. Head: Normal external exam. Normocephalic. Atraumatic. Eyes: Pupils are equal, round, and reactive to light. Extraocular movements intact. Conjunctiva and sclera normal. Eyelids normal. Ears: External auditory canal normal. Tympanic membranes normal. Throat: Pharynx normal. Uvula midline. Moist mucous membranes. Neck: Normal inspection. Neck supple. Full range of motion. No adenopathy. Thyroid Normal. No meningeal signs. No neck mass noted. Cardiovascular: Normal heart rate and rhythm. Heart sound normal. No murmurs noted. Pulses normal throughout. Respiratory: No respiratory distress. Painless inspiration. Breath sounds normal. No wheezes/rales/rhonchi noted. Chest nontender. No accessory muscle usage noted or decreased air movement noted. Abdomen: Soft and nontender. Bowel sounds normal in all 4 quadrants. No distention noted. No organomegaly noted. No visible injury noted. Back: No costovertebral angle tenderness. Full range of motion noted. Skin: Skin warm and dry. Normal skin color. Normal skin turgor. No rashes/lesions/lacerations noted. Extremities: No lower extremity edema. Extremities exhibit normal range of motion. Extremities nontender. Neuro: Oriented X 3. No motor deficit. No sensory deficit. Reflexes normal.Patient Instructions
[2024-09-06 09:49] VITALS: BP 128/78; PULSE 74; TEMP 36.9; O2SAT 94; BMI 26.4
--- OUTSIDE RECORDS SUMMARY | 2024-09-06 10:13 | XMS_ITS ---
[facility] Address [address] [place] [address] Care Team Providers Care Head Tennis Coach Name Role Phone Lukas Gupta MD Primary Care Provider Unavail able Gisell Sanderson Unavailable [phone] Allergies No Known Allergies REASON FOR VISIT [...] Ordered Date Performed Result Body Sit e 48777-TBNQHVM NAIL, 6 OR MORE 04/20/2024 N/A 45898-Ntvdieku Plate 04/20/2024 N/A Encounters Encounter Location Date Provider Diagnosis [facility] [address] [address] 04/20/2024 Gisell Black Pain in right foot [...] Treatment Pending Test Test Name Order Date 85386-BDSAZSE NAIL, 6 OR MORE 04/20/2024 07234-Tjzkroyq Plate 04/20/2024 Next Appt Details Follow Up: prn, Reason: Provider Name:Gisell Sanderson , 09/25/2024 08:30:00 AM, [address] [place] [address], [phone], Procedure Notes * Category Sub-Category Detail Notes [...] Motrin was recommended for pain or discomfort (11746) Anesthesia , was accomplished T OPICALLY with [...] use of a nail nipper and/or dremel-type grinder mill operator, to a more viable healthy nail plate or bed tissue 6-10. Silver nitrate used for any petechial bleeding as necessary. Definitive antifungal treatment options have been reviewed and discussed with the patient. The patient chooses, no pharmaceutical tx - [address]4041 Progress Notes * Vidhi MELENDREZ MDOB:1935 (88 yo F)Acc No.[id number]:04/20/2024 Progress Note Patient:?Vidhi MELENDREZ M Provider:?Gisell Sanderson DPM :1935???Age:88 Y???Sex:Female D ate:04/20/2024 Address:[address] [place], [place] [address] Pcp:Lukas Gupta MD Subjective: * Chief Complaints: [...] - L60.0??? Plan: * Treatment: 2.?Ingrown nail?Procedure: 37287-Kjlvscyg Plate * Procedures:?Debride Nail 6-10:?Nail debridement?Performance of this nail treatment by a nonprofessional would put this patients foot and overall health at risk. Therefore, debridement to affected nail(s), as described in exam, was performed extensively to reduce/remove overall nail length, girth, thickness, subungual debris, and necrotic tissue, by manual and/or electrical means through the use of a nail nipper and/or dremel-type grinder mill operator, to a more viable healthy nail plate or bed tissue 6-10. Silver nitrate used for any petechial bleeding as necessary. Definitive antifungal treatment options have been reviewed and discussed with the patient. The patient chooses, no pharmaceutical tx - 90370.?Nail Avulsion:?Location?, Lateral nail border, T5.?Anesthesia?, was accomplished [...] Motrin was recommended for pain or discomfort (91082).? * Procedure Codes:?09333 DEBRI DE NAIL, 6 OR MORE, Modifiers: XS 62003 Avulsion Plate, Modifiers: TA * Preventive Medicine:? [...] * Provider:?Gisell Sanderson DPM Date:?2023 Generated for uGtierrez sweet/Mary/Alexanderitting on:?09/06/2024 10:13 AM EDT History and Physical Notes * HPI [...]
--- OUTSIDE RECORDS SUMMARY | 2024-09-06 10:13 | XMS_ITS | Patient Health Record ---
[facility] Address [address] [place] [address] Care Team Providers Care Picture Hanger Name Role Phone Lukas Gupta MD Primary Care Provider Unavail able Black, Gisell Unavailable [phone] Allergies No Known Allergies Reason For Referral [...] primary osteoarthritis of the ankle and/or foot (844714665) Primary osteoarthritis, right ankle and foot (M19.071) Active confirmed Problem Acquired hallux valgus (56442179) Hallux valgus (acquired), right foot (M20.11) Active confirmed Problem Non-pressure ulcer lower limb (912077405) Non-pressure chronic ulcer of other part of right foot limited to breakdown of skin (L97.511) Active confirmed Problem Acquired hammer toe of right foot (766669887257041 5) Other hammer toe(s) (acquired), right foot (M20.41) Active confirmed Problem Acquired hammer toe of right foot (884847029656953 5) Hammer toe of right foot (M20.41) Active confirmed Improvement Problem Acquired hammer toe of left foot (139754033089695 3) Hammer toe of left foot (M20.42) Active confirmed Improvement Problem 496633335 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) Active confirmed Problem Localized, primary osteoarthritis of the ankle and/or foot (533755994) Arthritis of joint of lesser toe, right (M19.071) Active confirmed Vital Signs Blood pressure diastolic 70 mm Hg 09/09/2023 Height 5 ft 2 in in 04/20/2024 Blood pressure systolic 124 mm Hg 09/09/2023 Weight 146 lbs 04/20/2024 BMI 26.7 kg/m2 04/20/2024 Procedures Procedure Date Ordered Date Performed Result Body Sit e 35345-DYNHHAR NAIL, 6 OR MORE 09/09/2023 N/A 30473-YSKYOGK NAIL, OR MORE 12/27/2023 N/A 69508-IUSDCSK NAIL, 6 OR MORE 04/20/2024 N/A 30100-Jcazixvq Plate 04/20/2024 N/A Encounters Encounter Location Date Provider Diagnosis [address] [address] 09/09/2023 Gisell Black Tinea unguium B35.1 ; Pain in right toe(s) M79.674 ; Pain in left toe(s) M79.675 and Hammer toe of right foot M20.[address] [address] 12/27/2023 Gisell Black Pain in right foot M79.671 ; Metatarsalgia, right foot M77.41 ; Tinea unguium B35.1 ; Pain in right toe(s) M79.674 ; Pain in left toe(s) M79.675 ; Pain in right ankle and joints of right foot M25.571 ; Bursitis of intermetatarsal bursa of right foot M77.51 and 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 [address] 04/20/2024 Igsell Black Pain in right foot M79.671 ; Metatarsalgia, right foot M77.41 ; Tinea unguium B35.1 ; Pain in right toe(s) M79.674 ; Pain in left toe(s) M79.675 ; Pain in right ankle and joints of right foot M25.571 ; Bursitis of intermetatarsal bursa of right foot M77.51 ; 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 and Ingrown nail L60.0 [facility] [place] [address] [place] [address] 07/25/2024 Gisell Sanderson Assessments Encounter Date Diagnosis [...] X ray : Foot, right 3V 07/13/2012 51561-HIWDHVB NAIL, 6 OR MORE 12/21/2012 18510-ZPGKTDD NAIL, 6 OR MORE 03/27/2013 16039-LMBGTRG NAIL, 6 OR MORE 12/13/2017 80311-WHBHDXL NAIL, 6 OR MORE 05/02/2018 47553-LXTGUDN NAIL, 6 OR MORE 01/20/2019 56160-AVXWDQL NAIL, 6 OR MORE 04/04/2019 62847-JRWGEEF NAIL, 6 OR MORE 06/16/2019 70410-ZLHDNVB NAIL, 6 OR MORE 09/29/2019 81188-IKUPKGA NAIL, 6 OR MORE 12/26/2019 50140-OLVWKNC NAIL, 6 OR MORE 09/27/2020 47884-CVNEZXU NAIL, 6 OR MORE 09/10/2021 13994-XMODQMO NAIL, 6 OR MORE 01/29/2022 84609-TFVPJMD NAIL, 6 OR MORE 05/07/2022 02637-CGALSDS NAIL, 6 OR MORE 08/13/2022 52925-MRZELGG NAIL, 6 OR MORE 01/11/2023 07306-SJHHOZA NAIL, 6 OR MORE 05/17/2023 23405-QEQJMNQ NAIL, 6 OR MORE 09/09/2023 94216-UEZCYRL NAIL, 6 OR MORE 12/27/2023 49680-WLVKLKI NAIL, 6 OR MORE 04/20/2024 94250-YVRGEFZ NAIL, 1-5 08/14/2013 87498-QFQSPBP NAIL, 1-5 11/13/2013 86340-BPQDQYI NAIL, 1-5 02/21/2014 65735-JBOTBDU NAIL, 1-5 10/10/2014 09698-JEXUUVS NAIL, 1-5 02/06/2015 62173-VEJTEGP NAIL, -06/12/2015 91561-XCHCGLO NAIL, -11/27/2015 92441-Utmr Destruction, -02/06/2015 70946-Ixig Destruction, -02/21/2014 96291-Fzrf Destruction, -12/26/2019 30816-Nsak Destruction, -09/27/2020 30652-Bycj Destruction, 06-2009/29/2019 35381-Qmyb Destruction, -06/16/2019 80387-Bgqisofy Plate 09/10/2021 72220-Edhnosfz Plate 09/27/2020 10450-Hrxrafri Plate 12/26/2019 89378-Jzbmfhwc Plate 02/06/2015 66784-Bkamtmfc Plate 04/20/2024 94992-Qtiewxrg Plate 08/13/2022 45983-Dkoschzd Plate 01/29/2022 03972- Debride <25 sq cm 07/13/2012 79146- Debride <25 sq cm 08/14/2013 80131- Debride <25 sq cm 03/27/2013 92761- Debride <25 sq cm 12/21/2012 38553- Debride <25 sq cm 09/21/2012 50610- Ganglion Cyst Injection/Aspiratio n 01/20/2019- Ganglion Cyst Injection/Aspiratio n 04/04/2019 18523 - Tenotomy, open flexor 08/30/2023 Next Appt Details Provider Name:Gisell Sanderson , 09/25/2024 08:30:00 AM, [address] [place], [address], Insurance Providers Payer Name Payer Address Payer Phone Subscriber Number Group Number Insured Name Patient Relationship to Insured Coverage Start Date Coverage End Date Medicare [employer] [facility] [employer] [address] [place] [address] [id number] Vidhi Carballo Self - patient is the insured [employer] Secondary to Medicare [address] [place] [id number] Vidhi Carballo Self - patient is the [...]
--- OUTSIDE RECORDS SUMMARY | 2024-09-06 10:13 | XMS_ITS ---
Author Organization [facility] Address [address] [place] [id number] Care Team Providers Care Transition Social Worker Name Role Phone Alonso LEE, Lukas Primary Care Provider Unavail Gisell Parker [phone] Encounters Encounter Location Date Provider Diagnosis [address] [address] 07/27/2024 Gisell Sanderson Plan Of Treatment Next Appt Details Provider Name:Gisell Sanderson , 09/25/2024 08:30:00 AM, [address] [place] [address], [phone], Progress Notes * Vidhi MELENDREZ MDOB:1935 (88 yo F)Acc No.[id number]:07/27/2024 Progress Note Patient:?PARVIN Vidhi Rider Provider:?Gisell Sanderson DPM :1935???Age:88 Y???Sex:Female D ate:07/27/2024 Address:[address] [place] [id number] Pcp:Lukas Gupta MD Subjective: * Chief Complaints: * ??? * Medical History:? Objective: * Vitals:? Assessment: Plan: * Treatment: * Images: * The named appointment provid er may or may not be the originator of this progress note, and it is not deemed complete until electronically signed by the appointment provider. Sign off status: Pending * Provider:Arcadio Sanderson DPM Date:?2024 Generated for Guiterrez sweet/Mary/Alexanderitting on:?09/06/2024 10:13 AM EDT
--- OUTSIDE RECORDS SUMMARY | 2024-09-06 10:13 | XMS_ITS ---
Author Organization [facility] Address [address] [place] [phone] Care Team Providers Care Hog Sawyer Name Role Phone Alonso LEE, Lukas Primary Care Provider Unavail able Kin Gisell Unavailable [phone] REASON FOR VISIT rs 07/27/2024 Encounters Encounter Location Date Provider Diagnosis [address] [address] 07/25/2024 Gisell Sanderson Plan Of Treatment Next Appt Details Provider Name:Gisell Sims Kin , 09/25/2024 08:30:00 AM, [address] [place] [address], [phone], Progress Notes * Vidhi MELENDREZ MDOB:1935 (88 yo F)Acc No.[id number]:07/25/2024 Patient:?Vidhi MELENDREZ :1935???Age:88 Y???Sex:Female Address:[address] [place] [address], [phone] * true * Date:? Generated for Printi micki/Mary/eTransmitting on:?09/06/2024 10:12 AM EDT
== END 2024-09-06 10:13 | disposition home or self-care (01) ==
LOC: HO.HMCSH 09:15
PROVIDERS: PCP Internal Medicine; Visit Provider Physician Assistant Medical
DX: R79.89 Other specified abnormal findings of blood chemistry (principal); E66.3 Overweight; Z68.26 Body mass index [BMI] 26.0-26.9, adult; I10 Essential (primary) hypertension

== ENCOUNTER 2024-10-09 10:13 | Outpatient (AMB) | payer MEDICARE, SELFPAY ==
--- NOTE | 2024-10-09 10:14 | A.OFFPC_ITS ---
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: No Accompanied by: Self / Same As Patient Allergies No Known Allergies [No Known Allergies*] Allergy (Verified 10/09/24 10:30) Medication List - Last Reconciled 10/09/24 by Edwina Zuleta PA-C albuterol sulfate 90 mcg/actuation 1 inh inhalation Q4-6H PRN aspirin 81 mg PO DAILY atorvastatin 20 mg PO DAILY calcium carbonate-vit D3-min 600 mg-10 mcg (400 unit) 1 tab PO BID fluticasone propion-salmeterol 250-50 mcg/dose 1 inh inhalation BID ibuprofen 800 mg PO Q6H PRN levothyroxine 75 mcg PO DAILY metoprolol tartrate 25 mg PO DAILY Tobacco use date assessed: 10/09/24 Fall risk assessment: No Falls in past year Last assessed Fall Risk: 10/09/24 Dental Screening Dental Screen Date: 10/09/24 Did you have a dental visit in the last 12 months?: No Did you have a dental problem in the last 6 months where you did not have access to dental care?: No Was dental information given to patient?: Patient has dentist (patient has dentures) HPI Lower back pain HPI Details The patient is an 88-year-old female presenting with back pain localized to the left lower lumbar region, experienced as a heavy internal pressure with onset while driving. She reports no recent trauma or significant physical strain, and associates the onset perhaps with an awkward turning in bed. The pain intensity increased compared to previous days but has no radiation to the lower extremities. Her ability to move is impacted, making it difficult to get out of bed. The patient denies recent imaging studies or laboratory assessments pertinent to the symptomatic episode. Despite prior occurrences of severe incapacitating episodes of similar back pain, no definitive diagnosis or prior interventional treatments were noted. Her medical history includes plaque psoriasis, and she reports no urinary or fecal incontinence, normal bowel and bladder functions, and a lack of constitutional symptoms such as fever or nausea. She does not have a history of kidney stones, fractures, or diabetes and is not on blood thinners. Spcial History - Reports using a walker at home for amb ulation support. - Family mentioned: Children - Maniages functional status with cautio us home layout adjustments. - Denies employment concerns; likely ret ired given age. 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 Rectocele Vaginal vault prolapse Osteoporosis Obstructive airway disease Squamous cell carcinoma of face Osteoarthritis Hypothyroidism Mild hypercholesterolemia Hypertension Cough Surgical History Hx of cataract surgery History of bunionectomy History of total right knee replacement History of right hip replacement History of left hip replacement Hx of hernia repair Hx of appendectomy Family History Mother No known health problems Father No known health problems Social History Housing: House Alcohol intake: current Alcohol intake frequency: holidays/special occasions only Patient Tobacco Use Status: Former Tobacco user service: No Current occupational status: retired Cognitive needs: No Hearing needs: Yes (b/l hearing aids) Vision needs: Yes (rx glasses) Questionnaire PHQ-9 Over the last 2 weeks, how often have you been bothered by any of the following problems? 1. Little interest or pleasure in doing things: not at all 2. Feeling down, depressed, or hopeless: not at all 3. Trouble falling or staying asleep, or sleeping too much: several days 4. Feeling tired or having little energy: several days 5. Poor appetite or overeating: not at all 6. Feeling bad about yourself - or that you are a failure or have let yourself or your family down: not at all 7. Trouble concentrating on things, such as reading the newspaper or watching television: not at all 8. Moving or speaking so slowly that other people could have noticed. Or the opposite - being so fidgety or restless that you have been moving around a lot more than usual: not at all 9. Thoughts that you would be better off or of hurting yourself in some way: not at all Total score: 2 Depression Screening Interpretation: Negative Depression Screening Done: Yes 78977 - PHQ-9 Billing: Yes Source: Developed by Drs. Lukas Pinto, Sujey Suero, Ismael Mcbride and colleagues, with an educational mahogany from [employer]. Thrive Questionnaire Date Thrive assessed: 09/06/24 I am a: Patient What is your living situation today?: I have a steady place to live Within the past 12 months, did the food you bought not last and you didn't have the money to get more?: Never true Within the past 12 months, did you worry whether your food would run out before you got money to buy more?: Never true Do you have trouble paying for medicines?: No Do you have trouble getting transportation to medical appointments?: No Do you have trouble paying your heating and electricity bill?: No Do you have trouble taking care of your child, family member or friend?: No Do you have trouble with day-to-day activities such as bathing, preparing meals, shopping, managing finances, etc.?: No Are you currently unemployed and looking for a job?: No Are you interested in more education?: No THRIVE Score: 0 AUDIT C Alcohol Use Questionnaire (AUDIT-C) 1. How often do you have a drink containing alcohol?: Monthly or less 2. How many drinks containing alcohol do you have on a typical day when you are drinking?: 1 or 2 3. How often do you have six or more drinks on one occasion?: Never Total Score: 1 Score Reviewed/Action Taken: No FRANCHESCA-7 AMB Questionnaire FRANCHESCA-7 Date FRANCHESCA - 7 assessed: 09/06/24 Feeling nervous, anxious, or on edge: 0 = Not at all Not being able to stop or control worryin = Not at all Worrying too much about different things: 0 = Not at all Trouble relaxin = Not at all Being so restless that it is hard to sit still: 0 = Not at all Becoming easily annoyed or irritable: 0 = Not at all Feeling afraid as if something awful might happen: 0 = Not at all Total FRANCHESCA-7 score (0-4 normal; 5-9 mild; 10-14 moderate; 15-21 severe): 0 Source: Developed by Drs. Lukas Pinto, Sujey Suero, Ismael Mcbride and colleagues, with an educational mahogany from [employer]. FRANCHESCA-7 Assessment Billing FRANCHESCA-7 Assessment Tool: FRANCHESCA-7 Assessment 30307 Review of Systems Const Details: - Constitutional: Denies fever, nausea, vomiting, or general malaise. - Genitourinary: Denies incontinence, urinary retention, and blood in urine. - Gastrointestinal: Denies black or bloody stools; reports normal bowel movements. - Musculoskeletal: Reports lower back pain; denies radiation to the legs. - Skin: Reports history of plaque psoriasis; denies rash indicative of shingles. Physical exam (Primary Care) Vital Signs: Last Vital Signs Temp 98.0 F 10/09/24 10:15 Pulse 88 10/09/24 10:15 Resp 16 10/09/24 10:15 BP 166/77 H 10/09/24 10:15 Pulse Ox 95 10/09/24 10:15 Oxygen Delivery Method Room Air 10/09/24 10:15 BMI result Body Mass Index 26.8 Tobacco/Smoking Status: Tobacco use Status Tobacco use date assessed 10/09/24 10/09/24 10:18 Patient Tobacco Use Status Former Tobacco user 10/09/24 10:18 PHQ-9: PHQ-9 Score PHQ-9: Total score 2 10/09/24 10:18 Depression Screening Interpretation: Negative Thrive Assessment: Date of Thrive Assessment Date Thrive assessed 09/06/24 10/09/24 10:18 Const Other: Appearance: Alert. Oriented X3. No acute distress. Head: Normal external exam. Normocephalic. Atraumatic. Eyes: Pupils are equal, round, and reactive to light. Extraocular movements intact. Conjunctiva and sclera normal. Eyelids normal. Throat: Pharynx normal. Uvula midline. Moist mucous membranes. Neck: Normal inspection. Neck supple. Full range of motion. Cardiovascular: Normal heart rate and rhythm. Heart sound normal. Respiratory: No respiratory distress. Painless inspiration Abdomen: Soft and nontender. Back: No costovertebral angle tenderness. Full range of motion noted. Reports significant lower back pain, primarily on the left side, with heavy pressure sensation. No tenderness upon palpation. Patient neuro intact bilaterally and distally in all 4 extremities. No rashes/lesions/induration/fluctuance or signs of infection noted. No signs of trauma noted. Skin: Skin warm and dry. Normal skin color. Normal skin turgor. No rashes/lesions/lacerations noted. Patient reports having plaque psoriasis. Extremities: Extremities exhibit normal range of motion. Neuro: Oriented X 3. No motor deficit. No sensory deficit. Reflexes normal. Coding Level of Care Code Est Pt Level 4 (08041) Diagnoses Lower back pain M54.50 Additional Codes FRANCHESCA-7 Assessment Billing - FRANCHESCA-7 Assessment Tool: FRANCHESCA-7 Assessment 37564 ([id number]) PHQ-9 - 15559 - PHQ-9 Billing: Yes ([id number]) Assessment & Plan Assessment & Plan (1) Lower back pain: Code(s): M54.50 - Low back pain, unspecified Category: Medical Plan: I recommended muscle relaxant therapy using Cyclobenzaprine (Flexeril) while warning about sedation effects along with NSAIDs (Ibuprofen) and Lidoderm patches. A lumbar x-ray was ordered to rule out structural causes. Follow-up scheduled if worsening occurs, to address potential neurological progression. Plan Plan Patient was informed and verbally consented to the use of an ambient scribe for clinic note documentation during this visit. 1. Back Pain I recommended muscle relaxant therapy using Cyclobenzaprine (Flexeril) while warning about sedation effects along with NSAIDs (Ibuprofen) and Lidoderm patches. A lumbar x-ray was ordered to rule out structural causes. Follow-up scheduled if worsening occurs, to address potential neurological progression. 2. Psoriasis Acknowledged history of psoriasis with no current exacerbation. Continued existing dermatological regimen advised and vigilance for symptoms suggesting a flare. We discussed the likely muscular nature of her lower back pain, ensuring she understood the potential benefits and risks of using a muscle relaxant and NSAIDs. I detailed the safety strategy regarding Cyclobenzaprine due to sedation risks and need for careful use with her mobility using a walker. I highlighted the immediate importance of lumbar x-ray imaging to exclude structural afflictions. We discussed that if her symptoms persist or exhibit alarming characteristics like weakness, numbness, or incontinence, these should prompt urgent medical contact. I affirmed the importance of monitoring her psoriasis and maintaining dermatologic care, even though it was presently quiescent. I instructed on effective and careful medication use to prevent inadvertent overdose or interactions. Orders: Orders XR lumbar spine 4V min Today M54.50 - Low back pain, unspecified Medications: New cyclobenzaprine 10 mg PO Q8H 30 tabs 0RF muscle spasm ibuprofen 800 mg PO Q6H PRN 30 tabs 0RF pain lidocaine 5% (Lidoderm) leave on most painful area for up to 12 hrs 1 patch topical DAILY 15 ea 1RF pain acetaminophen ER (Tylenol 8 Hour) 1,300 mg (2 x 650 mg) PO Q12H 30 tabs 0RF Patient Instructions: - Use Cyclobenzaprine (Flexeril) as directed; Start with a half dose to assess sleepiness. - Take Ibuprofen as needed for pain relief. - Apply one Lidoderm patch at a time to alleviate back pain. - Proceed to get a lumbar spine x-ray at your earliest convenience. - Monitor for any new symptoms such as leg weakness, numbness, or incontinence, and seek medical care if these occur. - Continue current psoriasis management routine; keep track of any flare-ups. - Use your walker carefully especially post-medication use due to potential dizziness. - Contact us if your current symptoms worsen or persist.
[2024-10-09 10:15] VITALS: BP 166/77; PULSE 88; RESP 16; TEMP 36.7; O2SAT 95; BMI 26.8
== END 2024-10-09 10:44 | disposition home or self-care (01) ==
LOC: HO.HMCSH 10:13
PROVIDERS: PCP Internal Medicine; Visit Provider Physician Assistant Medical
DX: M54.50 Low back pain, unspecified (principal)

== ENCOUNTER 2024-10-23 10:16 | Outpatient (AMB) | payer MEDICARE, SELFPAY ==
--- NOTE | 2024-10-23 10:35 | MHC.PC.OV ---
Vital Signs 10/23/24 10:39 Weight 147 lb 0.8 oz BP 144/64 H Blood Pressure Location Rt brachial Pulse 84 Pulse Source Pulse Oximeter Temp 97.9 F Temp Source Temporal Artery Scan Pulse Oximetry (%) 95 Intake Visit Reasons: 6 week follow up Intake Note: only to discuss back Allergies No Known Allergies [No Known Allergies*] Allergy (Verified 10/23/24 11:04) Medication List - Last Reconciled 10/23/24 by Edwina Zuleta PA-C acetaminophen ER (Tylenol 8 Hour) 1,300 mg (2 x 650 mg) PO Q12H albuterol sulfate 90 mcg/actuation 1 inh inhalation Q4-6H PRN aspirin 81 mg PO DAILY atorvastatin 20 mg PO DAILY calcium carbonate-vit D3-min 600 mg-10 mcg (400 unit) 1 tab PO BID cyclobenzaprine 10 mg PO Q8H fluticasone propion-salmeterol 250-50 mcg/dose 1 inh inhalation BID ibuprofen 800 mg PO Q6H PRN levothyroxine 75 mcg PO DAILY lidocaine 5% (Lidoderm) 1 patch topical DAILY metoprolol tartrate 25 mg PO DAILY Tobacco use date assessed: 10/09/24 Dental Screening Dental Screen Date: 10/09/24 HPI 6 week follow up HPI Details The patient is an 88-year-old female presenting with back pain. Initially, the pain was severe but has since improved significantly. The pain is localized to the lower back and is not associated with any recent falls or trauma. Upon examination, palpation does not exacerbate the pain. The patient occasionally experiences constipation but denies any hematochezia or melena. Recently performed blood work demonstrated normal renal and parathyroid function. An x-ray was performed but the results were unavailable at this time. Social History - The patient primarily engages in activities that are moderately physical, indicating a good level of functional ability for her age. - She receives support from her family, as indicated by her interaction with her son-in-law. 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 Rectocele Vaginal vault prolapse Osteoporosis Obstructive airway disease Squamous cell carcinoma of face Osteoarthritis Hypothyroidism Mild hypercholesterolemia Hypertension Cough Surgical History Hx of cataract surgery History of bunionectomy History of total right knee replacement History of right hip replacement History of left hip replacement Hx of hernia repair Hx of appendectomy Family History Mother No known health problems Father No known health problems Social History Housing: House Alcohol intake: current Alcohol intake frequency: holidays/special occasions only Patient Tobacco Use Status: Former Tobacco user service: No Current occupational status: retired Cognitive needs: No Hearing needs: Yes (b/l hearing aids) Vision needs: Yes (rx glasses) Questionnaire PHQ-9 Over the last 2 weeks, how often have you been bothered by any of the following problems? 1. Little interest or pleasure in doing things: not at all 2. Feeling down, depressed, or hopeless: not at all 3. Trouble falling or staying asleep, or sleeping too much: several days 4. Feeling tired or having little energy: several days 5. Poor appetite or overeating: not at all 6. Feeling bad about yourself - or that you are a failure or have let yourself or your family down: not at all 7. Trouble concentrating on things, such as reading the newspaper or watching television: not at all 8. Moving or speaking so slowly that other people could have noticed. Or the opposite - being so fidgety or restless that you have been moving around a lot more than usual: not at all 9. Thoughts that you would be better off or of hurting yourself in some way: not at all Total score: 2 Depression Screening Interpretation: Negative Depression Screening Done: Yes 93701 - PHQ-9 Billing: Yes Source: Developed by Drs. Lukas Pinto, Sujey Suero, Ismael Mcbride and colleagues, with an educational mahogany from [employer]. Thrive Questionnaire Date Thrive assessed: 09/06/24 I am a: Patient What is your living situation today?: I have a steady place to live Within the past 12 months, did the food you bought not last and you didn't have the money to get more?: Never true Within the past 12 months, did you worry whether your food would run out before you got money to buy more?: Never true Do you have trouble paying for medicines?: No Do you have trouble getting transportation to medical appointments?: No Do you have trouble paying your heating and electricity bill?: No Do you have trouble taking care of your child, family member or friend?: No Do you have trouble with day-to-day activities such as bathing, preparing meals, shopping, managing finances, etc.?: No Are you currently unemployed and looking for a job?: No Are you interested in more education?: No THRIVE Score: 0 FRANCHESCA-7 AMB Questionnaire FRANCHESCA-7 Date FRANCHESCA - 7 assessed: 09/06/24 Source: Developed by Drs. Lukas Pinto, Sujey Suero, Ismael Mcbride and colleagues, with an educational mahogany from [employer]. Review of Systems Const Details: - Musculoskeletal: Reports back pain located in the lower back; Denies any falls. - Gastrointestinal: Reports occasional constipation; Denies black or bloody stools. - Renal/Urinary: Denies pain over the kidney area and any urinary symptoms. Physical exam (Primary Care) Vital Signs: Last Vital Signs Temp 97.9 F 10/23/24 10:39 Pulse 84 10/23/24 10:39 BP 144/64 H 10/23/24 10:39 Pulse Ox 95 10/23/24 10:39 Tobacco/Smoking Status: Tobacco use Status Tobacco use date assessed 10/09/24 10/23/24 10:36 Patient Tobacco Use Status Former Tobacco user 10/23/24 10:36 PHQ-9: PHQ-9 Score PHQ-9: Total score 2 10/23/24 10:39 Depression Screening Interpretation: Negative Thrive Assessment: Date of Thrive Assessment Date Thrive assessed 09/06/24 10/23/24 10:36 Const Other: Appearance: Alert. Oriented X3. No acute distress. Head: Normal external exam. Normocephalic. Atraumatic. Eyes: Pupils are equal, round, and reactive to light. Extraocular movements intact. Conjunctiva and sclera normal. Eyelids normal. Throat: Pharynx normal. Uvula midline. Moist mucous membranes. Neck: Normal inspection. Neck supple. Full range of motion. Cardiovascular: Normal heart rate and rhythm. Respiratory: No respiratory distress. Painless inspiration. Abdomen: Soft and nontender. No distention noted. No organomegaly noted. Back: No costovertebral angle tenderness. Full range of motion noted. Patient reports improvement in back pain, but still experiences some discomfort. No tenderness upon palpation. No signs of infection. No step-offs or deformities noted. Skin: Skin warm and dry. Normal skin color. Normal skin turgor. No rashes/lesions/lacerations noted. Extremities: Extremities exhibit normal range of motion. Neuro: Oriented X 3. No motor deficit. No sensory deficit. Reflexes normal. Normal steady gait with cane. Results Reviewed Results Reviewed: - Labs: Normal kidney function, normal parathyroid levels. - Tests: X-ray performed but results pending from the [facility]. Coding Level of Care Code Est Pt Level 3 (08091) Diagnoses Lower back pain M54.50 Additional Codes PHQ-9 - 73722 - PHQ-9 Billing: Yes ([id number]) Assessment & Plan Assessment & Plan (1) Lower back pain: Code(s): M54.50 - Low back pain, unspecified Category: Medical Plan: The patient is utilizing Tylenol and lidocaine patches for her back pain, which appears to have improved. Her kidney function and parathyroid hormone levels are normal, ruling out organ-related causes. I will follow up on her x-ray to check for any structural concerns. Consideration of physical therapy is reserved for potential future need if condition worsens. Ongoing review of her symptoms and imaging results is planned. Plan Plan Patient was informed and verbally consented to the use of an ambient scribe for clinic note documentation during this visit. 1. Back Pain The patient is utilizing Tylenol and lidocaine patches for her back pain, which appears to have improved. Her kidney function and parathyroid hormone levels are normal, ruling out organ-related causes. I will follow up on her x-ray to check for any structural concerns. Consideration of physical therapy is reserved for potential future need if condition worsens. Ongoing review of her symptoms and imaging results is planned. I reviewed the patient's current back pain management with Tylenol and lidocaine patches. Her recent tests ruled out any kidney problems, a potential cause of her back pain. I have requested the radiological center to send her x-ray results, as they were not available at this visit. The efficacy of current treatments and the introduction of physical therapy based on future needs were discussed, alongside the reassurance of a normal lab profile. A review of these results will guide any future intervention. We discussed follow-up plans and potential indications for therapy if symptoms persist or other signs develop. Patient Instructions: - Continue using Tylenol and lidocaine patches as prescribed. - Monitor your back pain for any worsening symptoms. - Keep an eye on bowel habits and report any new or worsening symptoms like black or bloody stools. - Return to clinic if symptoms worsen or any new issues arise. - Await phone call with results of the back x-ray. - Follow up for a six-month retest or sooner if needed.
[2024-10-23 10:39] VITALS: BP 144/64; PULSE 84; TEMP 36.6; O2SAT 95
== END 2024-10-23 11:06 | disposition home or self-care (01) ==
LOC: HO.HMCSH 10:16
PROVIDERS: PCP Internal Medicine; Visit Provider Physician Assistant Medical
DX: M54.50 Low back pain, unspecified (principal)